=== PATIENT | male | born 1995 | race Caucasian/White ===

== ENCOUNTER → 2017-05-10 | Outpatient (CLI) | payer BC, OTHER ==
[2017-05-10 16:59] LABS: INR 1.04
[2017-05-10 18:53] LABS: ALBUMIN 4.4 GM/DL (3.2-5.2); ALBUMIN/GLOBULIN RATIO 1.33 (1.00-1.93); ALKALINE PHOSPHATASE 108 U/L (45-117); ALT/SGPT 29 U/L (12-78); ANION GAP 7 MEQ/L (8-16); AST/SGOT 25 U/L (15-37); BILIRUBIN,TOTAL 0.6 MG/DL (0.2-1.0); BLOOD UREA NITROGEN 16 MG/DL (7-18); CALCIUM LEVEL 9.2 MG/DL (8.5-10.1); CARBON DIOXIDE LEVEL 31 MEQ/L (21-32); CHLORIDE LEVEL 103 MEQ/L (98-107); CREATININE FOR GFR 1.23 MG/DL (0.70-1.30); GLUCOSE, FASTING 63 MG/DL (70-105); POTASSIUM SERUM 4.2 MEQ/L (3.5-5.1); SODIUM LEVEL 141 MEQ/L (136-145); TOTAL PROTEIN 7.7 GM/DL (6.4-8.2)
[2017-05-10 19:03] LABS: MEAN CORPUSCULAR HEMOGLOBIN 31.6 pg (27.0-33.0); MEAN CORPUSCULAR HGB CONC 35.6 g/dl (32.0-36.5); WHITE BLOOD COUNT 5.1 K/mm3 (4.0-10.0)
[2017-05-10 21:02] LABS: EOSINOPHILS 1 % (0-5)
[2017-05-11 08:29] LABS: CONTROL LINE MONO INT CTR LINE PRESENT
[2017-05-14 08:12] LABS: Lyme Disease IgG Ab 18 kDa Ban Absent (.); Lyme Disease IgG Ab 23 kDa Ban Absent (.); Lyme Disease IgG Ab 28 kDa Ban Absent (.); Lyme Disease IgG Ab 30 kDa Ban Absent (.); Lyme Disease IgG Ab 39 kDa Ban Absent (.); Lyme Disease IgG Ab 41 kDa Ban Present (.); Lyme Disease IgG Ab 45 kDa Ban Absent (.); Lyme Disease IgG Ab 58 kDa Ban Absent (.); Lyme Disease IgG Ab 66 kDa Ban Absent (.); Lyme Disease IgG Ab 93 kDa Ban Absent (.); Lyme Disease IgG West Blot Int Negative (.); Lyme Disease IgG/IgM Antibodie <0.91 ISR (0.00-0.90); Lyme Disease IgM Ab 23 kDa Ban Absent (.); Lyme Disease IgM Ab 39 kDa Ban Absent (.); Lyme Disease IgM Ab 41 kDa Ban Present (.); Lyme Disease IgM Ab Quantitati 0.92 index (0.00-0.79); Lyme Disease IgM West Blot Int Negative (.)
== END ==
LOC: M LAB 15:55
PROVIDERS: ATTEND Pediatrics
DX: R21 Rash and other nonspecific skin eruption (principal)

== ENCOUNTER → 2018-09-15 | Outpatient (CLI) | payer BC, OTHER ==
[2018-09-15 18:07] LABS: ALBUMIN/GLOBULIN RATIO 1.18 (1.00-1.93); ALKALINE PHOSPHATASE 82 U/L (45-117); ALT/SGPT 33 U/L (12-78); ANION GAP 5 MEQ/L (8-16); AST/SGOT 25 U/L (7-37); BLOOD UREA NITROGEN 11 MG/DL (7-18); CALCIUM LEVEL 8.9 MG/DL (8.5-10.1); CARBON DIOXIDE LEVEL 32 MEQ/L (21-32); CHLORIDE LEVEL 102 MEQ/L (98-107); CREATININE FOR GFR 1.18 MG/DL (0.70-1.30); GLUCOSE, FASTING 88 MG/DL (70-100); POTASSIUM SERUM 4.1 MEQ/L (3.5-5.1); SODIUM LEVEL 139 MEQ/L (136-145); TOTAL PROTEIN 7.4 GM/DL (6.4-8.2)
[2018-09-15 18:11] LABS: EOS % 0.5 % (0.0-3.0); HEMATOCRIT 39.4 % (42.0-52.0); HEMOGLOBIN 13.3 g/dl (13.5-17.5); LYMPH # 0.7 10^3/uL (1.5-6.5); MEAN CORPUSCULAR HEMOGLOBIN 30.2 pg (27.0-33.0); MEAN CORPUSCULAR HGB CONC 33.8 g/dl (32.0-36.5); MEAN CORPUSCULAR VOLUME 89.3 fl (80.0-96.0); MONO # 0.6 10^3/uL (0.0-0.8); MONO % 14.6 % (0.0-5.0); NEUTROPHILS # 2.6 10^3/uL (1.8-7.7); NEUTROPHILS % 65.9 % (36.0-66.0); PLATELET COUNT, AUTOMATED 116 10^3/uL (150-450); RED BLOOD COUNT 4.41 10^6/uL (4.30-6.10); RED CELL DISTRIBUTION WIDTH 13.2 % (11.5-14.5); WHITE BLOOD COUNT 3.9 10^3/uL (4.0-10.0)
[2018-09-19 00:50] LABS: EBV VIRAL CAPSID AG IgM <36.0 U/mL (0.0-35.9)
== END ==
LOC: M WUC 16:45
DX: J03.90 Acute tonsillitis, unspecified (principal); R50.9 Fever, unspecified
CPT/HCPCS: 80053

== ENCOUNTER → 2019-01-14 | Outpatient (CLI) | payer BC, OTHER ==
[2019-01-14 14:38] LABS: BASO % 0.3 % (0.0-1.0); EOS # 0.1 10^3/uL (0.0-0.50); EOS % 1.6 % (0.0-3.0); HEMOGLOBIN 14.1 g/dl (13.5-17.5); LYMPH # 0.6 10^3/uL (1.5-6.5); LYMPH % 17.8 % (24.0-44.0); MEAN CORPUSCULAR HEMOGLOBIN 30.5 pg (27.0-33.0); MEAN CORPUSCULAR HGB CONC 34.4 g/dl (32.0-36.5); MEAN CORPUSCULAR VOLUME 88.7 fl (80.0-96.0); MONO # 0.6 10^3/uL (0.0-0.8); MONO % 18.8 % (0.0-5.0); NEUTROPHILS # 1.9 10^3/uL (1.8-7.7); NEUTROPHILS % 61.5 % (36.0-66.0); PLATELET COUNT, AUTOMATED 137 10^3/uL (150-450); RED BLOOD COUNT 4.62 10^6/uL (4.30-6.10); WHITE BLOOD COUNT 3.1 10^3/uL (4.0-10.0)
== END ==
LOC: M WUC 11:26
PROVIDERS: ATTEND Physician Assistant
DX: K11.20 Sialoadenitis, unspecified (principal)

== ENCOUNTER → 2019-03-12 | Outpatient (CLI) | payer BC, OTHER ==
--- NOTE | 2019-03-12 15:07 | REP ---
LEFT FOOT, FOUR VIEWS: HISTORY: Sprain. There is no acute fracture or dislocation. The joint spaces are normal in appearance. IMPRESSION: There is no acute fracture or dislocation. Electronically Signed by Dion Nelson MD 03/12/2019 03:13 P
--- NOTE | 2019-03-12 15:09 | REP ---
LEFT ANKLE, FOUR VIEWS: HISTORY: Sprain. There is no acute fracture or dislocation. The joint space is normal in appearance. Soft tissue swelling is present. IMPRESSION: There is no acute fracture or dislocation. Electronically Signed by Dion Nelson MD 03/12/2019 03:13 P
== END ==
LOC: M WUC 12:03
PROVIDERS: ATTEND Physician Assistant
DX: S93.402A Sprain of unspecified ligament of left ankle, initial encounter (principal); S93.602A Unspecified sprain of left foot, initial encounter; Y93.9 Activity, unspecified

== ENCOUNTER → 2019-07-08 | Outpatient (REF) | payer OTHER ==
[2019-07-09 10:07] LABS: HIV 1&2 SCREEN CENTAUR NEGATIVE (NEGATIVE)
[2019-07-10 10:14] LABS: HEPATITIS B SURFACE ANTIBODY NEGATIVE (POSITIVE); HEPATITIS B SURFACE ANTIGEN NEGATIVE (NEGATIVE); HEPATITIS C VIRUS ABY INDEX 0.1 INDEX (<0.8)
[2019-07-11 08:06] LABS: HEPATITIS B CORE ANTIBODY IGG Negative (Negative)
== END ==
LOC: M SFHCPLAZ 15:51
PROVIDERS: ATTEND Dermatology
DX: Z79.899 Other long term (current) drug therapy (principal)

== ENCOUNTER → 2020-04-14 | Outpatient (CLI) | payer OTHER ==
[2020-04-14 14:37] LABS: CREATININE FOR GFR 1.09 MG/DL (0.70-1.30); GLOMERULAR FILTRATION RATE > 60.0 (>60)
== END ==
LOC: M WUC 11:49
PROVIDERS: ATTEND Physician Assistant Medical
DX: Z51.81 Encounter for therapeutic drug level monitoring (principal); Z79.899 Other long term (current) drug therapy; L40.59 Other psoriatic arthropathy

== ENCOUNTER → 2021-01-25 | Outpatient (CLI) | payer OTHER ==
[2021-01-25 16:47] LABS: BASO % 0.4 % (0.0-1.0); EOS # 0.1 10^3/uL (0.0-0.5); EOS % 1.7 % (0.0-3.0); HEMATOCRIT 44.8 % (42.0-52.0); HEMOGLOBIN 15.4 g/dl (13.5-17.5); LYMPH # 1.5 10^3/uL (1.5-5.0); LYMPH % 28.1 % (24.0-44.0); MEAN CORPUSCULAR HEMOGLOBIN 30.8 pg (27.0-33.0); MEAN CORPUSCULAR HGB CONC 34.4 g/dl (32.0-36.5); MEAN CORPUSCULAR VOLUME 89.6 fl (80.0-96.0); MONO # 0.6 10^3/uL (0.0-0.8); MONO % 10.6 % (2.0-8.0); NEUTROPHILS # 3.1 10^3/uL (1.5-8.5); PLATELET COUNT, AUTOMATED 168 10^3/uL (150-450); WHITE BLOOD COUNT 5.3 10^3/uL (4.0-10.0)
[2021-01-25 16:53] LABS: APPEARANCE, URINE CLEAR (CLEAR); BACTERIA, URINE AUTO NEGATIVE (NEGATIVE); BILIRUBIN, URINE AUTO NEGATIVE (NEGATIVE); BLOOD, URINE BLOOD NEGATIVE (NEGATIVE); COLOR, URINE STRAW (YELLOW); GLUCOSE, URINE (UA) AUTO NEGATIVE (NEGATIVE); KETONE, URINE AUTO NEGATIVE (NEGATIVE); LEUKOCYTE ESTERASE, URINE AUTO NEGATIVE (NEGATIVE); NITRITE, URINE AUTO NEGATIVE (NEGATIVE); PROTEIN, URINE AUTO NEGATIVE (NEGATIVE); RBC, URINE AUTO 0 /HPF (0-3); SPECIFIC GRAVITY URINE AUTO 1.004 (1.002-1.035); SQUAMOUS EPITHELIAL CELL UR AU 0 /HPF (0-6); UROBILINOGEN, URINE AUTO 0.2 mg/dL (0.0-2.0); WBC, URINE AUTO 0 /HPF (0-3)
[2021-01-25 17:15] LABS: BLOOD UREA NITROGEN 19 MG/DL (7-18); CALCIUM LEVEL 9.4 MG/DL (8.5-10.1); CARBON DIOXIDE LEVEL 31 MEQ/L (21-32); CHLORIDE LEVEL 99 MEQ/L (98-107); GLOMERULAR FILTRATION RATE > 60.0 (>60); GLUCOSE, FASTING 89 MG/DL (70-100); SODIUM LEVEL 134 MEQ/L (136-145)
[2021-01-25 17:25] LABS: CREATININE, URINE 39.3 MG/DL; MALB URINE SIEMENS 5.7 MG/L; MAU/CREAT RATIO 14.5 MCG/MG (0.0-30.0); TOTAL PROTEIN,RANDOM URINE 8.5 MG/DL (0.0-12.0)
[2021-01-25 18:12] LABS: HEMOGLOBIN A1c 4.6 %
== END ==
LOC: M WUC 13:42
DX: Z00.5 Encounter for examination of potential donor of organ and tissue (principal)

== ENCOUNTER → 2021-06-03 | Outpatient (REF) | payer OTHER ==
[2021-06-03 13:38] LABS: APPEARANCE, URINE CLEAR (CLEAR); BACTERIA, URINE AUTO NEGATIVE (NEGATIVE); BILIRUBIN, URINE AUTO NEGATIVE (NEGATIVE); BLOOD, URINE BLOOD NEGATIVE (NEGATIVE); COLOR, URINE YELLOW (YELLOW); GLUCOSE, URINE (UA) AUTO NEGATIVE (NEGATIVE); KETONE, URINE AUTO NEGATIVE (NEGATIVE); LEUKOCYTE ESTERASE, URINE AUTO NEGATIVE (NEGATIVE); MUCUS, URINE SMALL (NEGATIVE); NITRITE, URINE AUTO NEGATIVE (NEGATIVE); PROTEIN, URINE AUTO NEGATIVE (NEGATIVE); RBC, URINE AUTO 0 /HPF (0-3); SPECIFIC GRAVITY URINE AUTO 1.014 (1.002-1.035); SQUAMOUS EPITHELIAL CELL UR AU 0 /HPF (0-6); UROBILINOGEN, URINE AUTO 0.2 mg/dL (0.0-2.0); WBC, URINE AUTO 0 /HPF (0-3)
[2021-06-03 15:32] LABS: GC DNA AMPLIFICATION NEGATIVE (NEGATIVE)
== END ==
LOC: M SMT 13:03
PROVIDERS: ATTEND Nurse Practitioner Family
DX: N48.89 Other specified disorders of penis (principal)

== ENCOUNTER → 2021-08-14 | Outpatient (CLI) | payer BC, OTHER ==
[~2021-08-14] MED LIST: BACTDSTA PO; FAMO40TA3 PO; FLUO20CA22 PO; PANT40TA29 PO
== END ==
LOC: M LABSMTC 09:27
PROVIDERS: ATTEND Anesthesiology
DX: Z01.812 Encounter for preprocedural laboratory examination (principal); Z20.822 Contact with and (suspected) exposure to COVID-19

== ENCOUNTER 2021-08-19 12:20 | Day surgery (SDC) | payer BC, OTHER ==
[~2021-08-19] VITALS: Ht 182.9 cm; Wt 81.6 kg
[~2021-08-19 12:20] MED LIST changes: +LIDOCAINE 2% 100MG/5ML SDV (FOR ANES.) As Ordered ONE; +NS 1,000 ML IV ONE; +fentaNYL 100 MCG/2 ML INJECTION (J3010) As Ordered ONE; +propofoL 200 MG/20 ML VIAL As Ordered ONE
--- OUTSIDE RECORDS SUMMARY | 2021-08-19 12:25 | CCD ---
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 Active confirme d 72605502 Problem Common wart B07.8 Active confirmed 93805250 Problem Arthritis M19.90 Active confirmed 2075755 ALLERGIES No Known Allergies ENCOUNTERS from 1997 to 2021-07-22 Encounter Location Date Provider Diagnosis [facility] Urology [address] [phone] [place] [address] Jun, Reese Alcocer Penile pain N48.89 ; Suprapubic pain R10 .2 ; Chronic prostatitis N41.1 and Perineal pain R10.2 IMMUNIZATIONS No Information SOCIAL HISTORY Tobacco Use: Social History Observation Description Date Details (start date - stop date) Never Smoker Sex Assigned At : Social History Observation Description Sex Assigned At Unknown Tobacco Use: Question Answer Notes Are you a: never smoker REASON FOR REFERRAL No Information VITAL SIGNS Weight 180 lbs Jun, Height 70 in Jun, BMI 25.82 kg/m2 Jun, Heart Rate 98 /min Jun, Respiratory Rate 18 /min Jun, Temperature 97.0 degrees Fahrenheit Jun, Oximetry 99 Jun, Blood pressure systolic 136 mm Hg Jun, Blood pressure diastolic 86 mm Hg Jun, MEDICATIONS Medication SIG (Take, Route, Frequency, Duration) Notes Start Da te End Date Status Valtrex Not-Taking Sulfamethoxazole-Trimethoprim 800-160 MG 1 tablet Oral ly Twice a day for 21 days May, Not-Taking Humira Pen 40 MG/0.4ML as directed Subcutaneous 1 pen every 2 weeks Not-Taking Imiquimod 5 % 1 application at bedtime, le ave on for 8 hours then wash off Externally nightly for 30 days February, A ctive Otezla 30 1 TABLET TWICE A DAY AFTER T HE START PACK IS COMPLETED ORALLY 30 DAY(S) for 30 Not-Taking Otezla 10 & 20 & 30 MG as directed Orally as directed for 28 day (s) Apr, Not-Taking Cosentyx 150 MG/ML 1 ml Subcutaneous for 30 day(s) Active Triamcinolone Acetonide 0.1 % 1 application Externally Twice a day to affected areas of trunk and extremities for 14 days February, Active Pantoprazole Sodium 40 MG TK 1 T PO QD Oral Active Bactrim DS 800-160 MG 1 tablet Orally Twice a day Jun, Active Otezla 30 MG 1 tablet Orally Twice a day after the start pack is completed for 30 Not-Taking PROCEDURES No Information RESULTS No Results REASON FOR VISIT penile pain MEDICAL (GENERAL) HISTORY Type Description Date Medical History Chronic prostatitis Surgical History knee surgery 2015 Surgical History [place] tooth extraction 10/2019 Goals Section No Information Health Concerns No Information MEDICAL EQUIPMENT No Information MENTAL STATUS No Information FUNCTIONAL STATUS No Information ASSESSMENTS Encounter Date Diagnosis Assessment Notes Treatment Notes Treatm ent Clinical Notes Jun, Penile pain (ICD-10 - N48.89) Jun, Suprapubic pain (ICD-10 - R10.2) Jun, Chronic prostatitis (ICD-10 - N41.1) Jun, Perineal pain (ICD-10 - R10.2) PLAN OF TREATMENT Medication Medication Name Sig Start Date Stop Date Bactrim DS 800-160 MG 1 tablet Orally Twice a day Jun, Next Appt Details As needed, depends upon results of antib iotic Reason:Chronic prostatitis Provider Name:Sasha Richardson, 2021-07-27 02:30:00 PM, [address] [place] [address], , [place], [place], [facility], Provider Name:Sasha Richardson, 2022-02-28 07:30:00 AM, [address] [place] [address], , [place], [place], [facility], Follow Up:As needed, depends upon results of antibioticChronic prostatitis Insurance Providers Payer Name Payer Address Payer Phone Insured Name Patient Relati onship to Insured Coverage Start Date Coverage End Date [facility] [address] [facility] [id number] MICHOACANO PATINO [id number]
--- OUTSIDE RECORDS SUMMARY | 2021-08-19 12:25 | CCD ---
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 confirme d 52944350 Problem High risk medication use Z79.899 Active confirmed 130309164251304 Problem Common wart B07.8 Active confirmed 96575226 ALLERGIES No Known Allergies ENCOUNTERS from 1997 to 2021-06-21 Encounter Location Date Provider Diagnosis [facility] Dermatology [address] [place] [address] [place] [address] May, Sasha Richardson Verruca B07.9 and Skin irrit ation R23.8 IMMUNIZATIONS No Information SOCIAL HISTORY Tobacco Use: Social History Observation Description Date Details (start date - stop date) Never Smoker Sex Assigned At : Social History Observation Description Sex Assigned At Unknown Tobacco Use: Question Answer Notes Are you a: never smoker REASON FOR REFERRAL No Information VITAL SIGNS Weight 179.4 lbs May, Weight-kg 81.38 kg May, Height 70 in May, BMI 25.74 kg/m2 May, Blood pressure systolic 124 mm Hg May, Blood pressure diastolic 72 mm Hg May, MEDICATIONS Medication SIG (Take, Route, Frequency, Duration) Notes Start Da te End Date Status Valtrex Active Sulfamethoxazole-Trimethoprim 800-160 MG 1 tablet Oral ly Twice a day for 21 days May, Active Cosentyx 150 MG/ML 1 ml Subcutaneous for 30 day(s) Active Otezla 30 1 TABLET TWICE A DAY AFTER T HE START PACK IS COMPLETED ORALLY 30 DAY(S) for 30 Not-Taking Imiquimod 5 % 1 application at bedtime, le ave on for 8 hours then wash off Externally nightly for 30 days February, A ctive Humira Pen 40 MG/0.4ML as directed Subcutaneous 1 pen every 2 weeks Not-Taking Pantoprazole Sodium 40 MG TK 1 T PO QD Oral Active Triamcinolone Acetonide 0.1 % 1 application Externally Twice a day to affected areas of trunk and extremities for 14 days February, Active Otezla 30 MG 1 tablet Orally Twice a day after the start pack is completed for 30 Not-Taking Otezla 10 & 20 & 30 MG as directed Orally as directed for 28 day (s) Apr, Not-Taking PROCEDURES No Information RESULTS No Results REASON FOR VISIT wart f/u MEDICAL (GENERAL) HISTORY Type Description Date Surgical History knee surgery 2015 Surgical History [place] tooth extraction 10/2019 Goals Section No Information Health Concerns No Information MEDICAL EQUIPMENT No Information MENTAL STATUS No Information FUNCTIONAL STATUS No Information ASSESSMENTS Encounter Date Diagnosis Assessment Notes Treatment Notes Treatm ent Clinical Notes May, Nikole (ICD-10 - B07.9) 2nd cryotherapy treatment to groin Cryotherapy x [15] number of sites. [place] protocol was followed in compliance with [facility] standards. Patient was counseled regarding the indication for treatment (precancerous state for actinic keratosis or cosmetic reasons if done for seborrheic keratoses, acrochordons or warts) as well as, the method and expected results to include compromise of the skin barrier, bleeding, scarring/white area, redness at site, lesion recurrence, and pain. Patient was consented to the risks and benefits of the procedure and gave informed consent. Lesion(s) with locations as indicated in the physical examination were treated. Lesion(s) were treated with 2 cycles of liquid nitrogen with a thaw time of at least ten seconds. Therapy was applied in a pulsed fashion to minimize collateral tissue injury. Patient was instructed to use Vaseline ointment to the area(s) until healed. Patient tolerated the procedure well and left in stable condition. Pain before and after the procedure were assessed to not be significantly different than baseline. May, Skin irritation (ICD-10 - R23.8) PLAN OF TREATMENT Medication Medication Name Sig Start Date Stop Date Imiquimod 5 % 1 application at bedtime, le ave on for 8 hours then wash off Externally nightly for 30 days February, Treatment Notes Assessment Notes Clinical Notes Verruca 2nd cryotherapy treatment to groin Cryot herapy x [15] number of sites. [place] protocol was followed in compliance with [facility] standards. Patient was counseled regarding the indication for treatment (precancerous state for actinic keratosis or cosmetic reasons if done for seborrheic keratoses, acrochordons or warts) as well as, the method and expected results to include compromise of the skin barrier, bleeding, scarring/white area, redness at site, lesion recurrence, and pain. Patient was consented to the risks and benefits of the procedure and gave informed consent. Lesion(s) with locations as indicated in the physical examination were treated. Lesion(s) were treated with 2 cycles of liquid nitrogen with a thaw time of at least ten seconds. Therapy was applied in a pulsed fashion to minimize collateral tissue i njury. Patient was instructed to use Vaseline ointment to the area(s) until healed. Patient tolerated the procedure well and left in stable condition. Pain before and after the procedure were assessed to not be significantly different than baseline. Next Appt Details 6 Weeks Reason:wart f/u Provider Name:Reese Alcocer, 2021-06-0 9 09:30:00 AM, [address], , [place], [address], Provider Name:Sasha Richardson, 2021-07-27 02:30:00 PM, [address] [place] [address], , [place], [address], Provider Name:Sasha Richardson, 2022-02-28 07:30:00 AM, [address] [place] [address], , [place], [address], Follow Up:6 Weekswart f/u Insurance Providers Payer Name Payer Address Payer Phone Insured Name Patient Relati onship to Insured Coverage Start Date Coverage End Date [facility] [address] [facility] [id number] MICHOACANO PATINO [id number]
--- OUTSIDE RECORDS SUMMARY | 2021-08-19 12:25 | CCD ---
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 confirme d 85043158 Problem Common wart B07.8 Active confirmed 14400843 Problem Arthritis M19.90 Active confirmed 5189558 ALLERGIES No Known Allergies ENCOUNTERS from 1997 to 2021-07-28 Encounter Location Date Provider Diagnosis [facility] Dermatology [address] [place] [address] [place] [address] Jul, Sasha Richardson Verruca B07.9 and Skin irrit ation R23.8 IMMUNIZATIONS No Information SOCIAL HISTORY Tobacco Use: Social History Observation Description Date Details (start date - stop date) Never Smoker Sex Assigned At : Social History Observation Description Sex Assigned At Unknown Tobacco Use: Question Answer Notes Are you a: never smoker REASON FOR REFERRAL No Information VITAL SIGNS Weight 183.4 lbs Jul, Weight-kg 83.19 kg Jul, Height 72 in Jul, BMI 24.87 kg/m2 Jul, Blood pressure systolic 128 mm Hg Jul, Blood pressure diastolic 76 mm Hg 05 Oct, 2021 MEDICATIONS Medication SIG (Take, Route, Frequency, Duration) Notes Start Da te End Date Status Pantoprazole Sodium 40 MG TK 1 T PO QD Oral Active Cosentyx 150 MG/ML 1 ml Subcutaneous for 30 day(s) Active Triamcinolone Acetonide 0.1 % 1 application Externally Twice a day to affected areas of trunk and extremities for 14 days February, Active Imiquimod 5 % 1 application at bedtime, le ave on for 8 hours then wash off Externally nightly for 30 days February, A ctive Humira Pen 40 MG/0.4ML as directed Subcutaneous 1 pen every 2 weeks Not-Taking Sulfamethoxazole-Trimethoprim 800-160 MG 1 tablet Oral ly Twice a day for 21 days May, Not-Taking Valtrex Not-Taking Otezla 10 & 20 & 30 MG as directed Orally as directed for 28 day (s) Apr, Not-Taking Otezla 30 MG 1 tablet Orally Twice a day after the start pack is completed for 30 Not-Taking Otezla 30 1 TABLET TWICE A DAY AFTER T HE START PACK IS COMPLETED ORALLY 30 DAY(S) for 30 Not-Taking Bactrim DS 800-160 MG 1 tablet Orally Twice a day Jun, Active PROCEDURES No Information RESULTS No Results REASON FOR VISIT WART F/U MEDICAL (GENERAL) HISTORY Type Description Date Medical History Chronic prostatitis Surgical History knee surgery 2015 Surgical History [place] tooth extraction 10/2019 Goals Section No Information Health Concerns No Information MEDICAL EQUIPMENT No Information MENTAL STATUS No Information FUNCTIONAL STATUS No Information ASSESSMENTS Encounter Date Diagnosis Assessment Notes Treatment Notes Treatm ent Clinical Notes Jul, Verruca (ICD-10 - B07.9) Cryotherapy x [ 9] number of sites. [place] protocol was followed in compliance with [facility] standards. Patient was counseled regarding the [...] to not be significantly different than baseline. Jul, Skin irritation (ICD-10 - R23.8) PLAN OF TREATMENT Treatment Notes Assessment Notes Clinical Notes Verruca Cryotherapy x [ 9] number of sites. [place] protocol was followed in compliance with [facility] standards. Patient was counseled regarding the [...] than baseline. Next Appt Details 6 Weeks Reason:verrucae Provider Name:Sasha Richardson, 2021-09-09 07:15:00 AM, [address] [place] [address], [place], [place], [address] [place], [place] [address] Provider Name:Sasha Richardson, 2022-02-28 07:30:00 AM, [address] [place] [address], [address] [place], [place] [phone] Follow Up:6 Weeksverrucae Insurance Providers Payer Name Payer Address Payer Phone Insured Name Patient Relati onship to Insured Coverage Start Date Coverage End Date [facility] [address] [facility] [id number] MICHOACANO PATINO [id number]
--- OUTSIDE RECORDS SUMMARY | 2021-08-19 12:25 | CCD | Continuity of Care Document ---
Author Author John Carbone MD Organization Unknown Address [address] [address] Phone [phone] Care Team Providers Care Landcare Officer Name Role Phone Humberto Sheriff AUTM [phone] [facility] AUTM Problems Description No Information Available Social History Type Date Description Comments Sex Unknown ETOH Use Occasionally consumes alcohol so cially Tobacco Use Start: Unknown Patient has never smoked Allergies, Adverse Reactions, Alerts Description No Known Drug Allergies Medications Active Medications SIG Qnty Indications Ordering Provide r Date Cosentyx 150mg/ml Soln Prefill Syringe Dante Carbone MD 05/18/2021 Ondansetron 4mg Tablets Dispers one odt every 6 hours as needed for nausea 60tabs PÉREZ Barkley JR 02/22/2021 Valacyclovir HCL 500mg Tablets take one tablet by mouth daily 90tabs PÉREZ Frausto JR 0 01/26/2021 Ibuprofen 800mg Tablets 1 three times a day with food as needed pain 180tabs PÉREZ Kurtz 12/03/2020 Fluoxetine HCL 20mg Capsules 1 by mouth every morning with food 90caps PÉREZ Frausto JR 11/11/2020 Pantoprazole Sodium 40mg Tablets D R take 1 tablet by mouth every day 90tabs K21.9 Dante Carbone MD 04/19/2018 History Medications Valacyclovir HCL 1gm Tablets take one tablet two times a day x 10 days 20tabs PÉREZ Reyes JR 01/15/2021 - 01/26/2021 Immunizations Description No Information Available Vital Signs Date Vital Result Comment 05/18/2021 9:11am BP Systolic 110 mmHg BP Diastolic 68 mmHg Heart Rate 64 /min Height 72 inches 6'0" Weight 174.00 lb BMI (Body Mass Index) 23.6 kg/m2 12/03/2020 1:05pm BP Systolic 128 mmHg BP Diastolic 80 mmHg Heart Rate 78 /min Height 72 inches 6'0" Weight 183.00 lb BMI (Body Mass Index) 24.8 kg/m2 Results Test Acquired Date Facility Test Result H/L Range Note Complete Blood Count 05/18/2021 [facility] [employer] [employer] [facility] Operator: Dr Dante Carbone [place], [place] [id number] [phone] WBC 4.9 x10*3/UL 4.1 - 10.9 RBC 4.95 x10*6/UL 4.20 - 6.30 Hemoglobin 15.3 g/dL 12.0 - 18.0 Hematocrit 44.0 % 37.0 - 51.0 MCV 88.7 fL 80.0 - 97.0 MCH 31.0 pg 26.0 - 32.0 MCHC 34.9 g/dL 31.0 - 38.0 RDW 12.5 % 11.6 - 13.7 PLT 146 x10*3/UL 140 - 440 MPV 8.9 FL 7.8 - 11.0 Lymph % 26.4 % 10.0 - 58.5 Mid % 6.7 % 1.7 - 9.3 Neut % 66.9 % 37.0 - 92.0 Lymph # 1.2 x10*3/UL 0.6 - 4.1 Mid # 0.5 x10*3/UL 0.1 - 0.6 Neut # 3.2 x10*3/UL 2.0 - 7.8 Comprehensive Chem Profile 05/18/2021 [facility] [employer] [facility] Operator: [place] [address] [phone] Glucose 98 mg/dL 74 - 99 1 BUN 19 mg/dL High 7 - 18 Creatinine 1.0 mg/dL 0.6 - 1.3 Sodium 140 mEq/L 136 - 145 Potassium 4.3 mEq/L 3.5 - 5.1 Chloride 103 mEq/L 98 - 107 Carbon Dioxide 33 mEq/L High 21 - 32 Calcium 9.9 mg/dL 8.5 - 10.1 Alk. Phosphatase 87 mg/dL 46 - 116 Total Bilirubin 0.5 mg/dL 0.2 - 1.0 Ast (Sgot) 29 U/L 15 - 37 Alt (SGPT) 29 U/L 12 - 78 Albumin 4.5 g/dL 3.4 - 5.0 Total Protein 7.6 g/dL 6.4 - 8.2 A/G Ratio 1.45 CALC 1.00 - 1.90 GFR >= 60 mL/min >60 GFR >= 60 mL/min >60 2 Lipid Profile 05/18/2021 [facility] [employer] Operator: Dr Dante Carbone [place], [place] [id number] [phone] Cholesterol 171 mg/dL 131 - 200 Triglycerides 139 mg/dL 30 - 150 HDL Cholesterol 37 mg/dL 35 - 60 LDL (Calculated) 106 CALC 50 - 159 1 100-125 mg/dL PRE-DIABET ES/FASTING >126 mg/dL DIABETES/FASTING 2 CHRONIC KIDNEY DISEASE STAGI NG PER NKF STAGE I & II GFR >= 60 NORMAL TO MILDLY DECREASED STAGE III GFR 30-59 MODERATELY DECREASED STAGE IV GFR 15-29 SEVERELY DECREASED STAGE V GFR <15 VERY LITTLE GFR LEFT ESRD GFR <15 ON DIAGNOSTIC CARDIAC SONOGRAPHER Procedures Date Code Description Status 05/18/2021 54603 Est Prevent Med (18-39Yrs) Compl eted 12/03/2020 72649 Office/Outpatient Established Lo w MDM 20-29 Min Completed Medical Devices Description No Information Available Encounters Type Date Location Provider Dx Diagnosis Office Visit 05/18/2021 9:00a [facility] P.Jennifer Carbone MD Z00.00 Encntr for general adult medical exam w/ o abnormal findings Z00.01 Encounter for general adult medical exam w abnormal findings L40.9 Psoriasis, unspecified 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 K21.9 Gastro-esophageal reflux dis ease without esophagitis N48.9 Disorder of penis, unspecifi ed Z13.89 Encounter for screening for other disorder Office Visit 12/03/2020 1:00p [facility]CValdo Sheriff JR, [place] F41.9 Anxiety disorder, unspecifie d Assessments Date Code Description Provider 05/18/2021 Z00.00 Encounter for genera l adult medical examination without abnormal findings Dante Carbone MD 05/18/2021 Z00.01 Encounter for genera l adult medical examination with abnormal findings Dante Carbone MD 05/18/2021 L40.9 Psoriasis, unspecified Dante Carbone MD 05/18/2021 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 * K21.9 Gastro-esophageal reflux disease without esophagitis * N48.9 Disorder of penis, unspecified * Z13.89 Encounter for screening for other disorder * All * New Medication:* Cosentyx 150 mg/ml - Functional Status Description No Information Available Mental Status Description No Information Available Referrals Refer to Reason for Referral Status Appt Date Richard Lubin MD CONSULT FOR SCREENING EGD DX: GERD Cr eated [address] [facility] [address] [place] [address] [phone] [facility] [place] CONSULT FOR PENILE PAIN Created [address] [place] [address] [phone]
--- OUTSIDE RECORDS SUMMARY | 2021-08-19 12:25 | CCD ---
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 confirme d 35620008 Problem High risk medication use Z79.899 Active confirmed [id number] Problem Common wart B07.8 Active confirmed 05316672 ALLERGIES No Known Allergies ENCOUNTERS from 1997 to 2021-06-04 Encounter Location Date Provider Diagnosis [facility] [address] [phone] [place] [address] May, Sunday Veras Penile pain N48.89 IMMUNIZATIONS No Information SOCIAL HISTORY Tobacco Use: Social History Observation Description Date Details (start date - stop date) Never Smoker Sex Assigned At : Social History Observation Description Sex Assigned At Unknown Tobacco Use: Question Answer Notes Are you a: never smoker REASON FOR REFERRAL No Information VITAL SIGNS Weight 170 lbs May, Weight-kg 77.11 kg May, Height 6' in May, BMI 23.05 kg/m2 May, Heart Rate 83 /min May, Respiratory Rate 18 /min May, Temperature 96.7 degrees Fahrenheit May, Oximetry 99 May, Blood pressure systolic 124 mm Hg May, Blood pressure diastolic 74 mm Hg May, MEDICATIONS Medication SIG (Take, Route, Frequency, Duration) Notes Start Da te End Date Status Otezla 10 & 20 & 30 MG as directed Orally as directed for 28 day (s) Apr, Not-Taking Valtrex Active Cosentyx 150 MG/ML 1 ml Subcutaneous for 30 day(s) Active Triamcinolone Acetonide 0.1 % 1 application Externally Twice a day to affected areas of trunk and extremities for 14 days February, Active Otezla 30 MG 1 tablet Orally Twice a day after the start pack is completed for 30 Not-Taking Pantoprazole Sodium 40 MG TK 1 T PO QD Oral for 60 Active Sulfamethoxazole-Trimethoprim 800-160 MG 1 tablet Oral ly Twice a day for 21 days May, Active Humira Pen 40 MG/0.4ML as directed Subcutaneous 1 pen every 2 weeks Not-Taking Otezla 30 1 TABLET TWICE A DAY AFTER T HE START PACK IS COMPLETED ORALLY 30 DAY(S) for 30 Not-Taking Imiquimod 5 % 1 application at bedtime, le ave on for 8 hours then wash off Externally nightly for 30 days February, A ctive PROCEDURES No Information RESULTS Component Value Reference Range CHLAMYDIA & GC DNA AMPLIFICAT Reviewed date:06/03/2021 15:53:29 Interpretation: Performing Lab:[facility] [address] [facility] [address] , ,[place] [address] CHLAMYDIA DNA AMPLIFICATION NEGATIVE NEGATIVE GC DNA AMPLIFICATION NEGATIVE NEGATIVE UA URINALYSIS Reviewed date:06/03/2021 13:57:09 Interpretation: Performing Lab:[facility] [address] [facility] [address] [address] , ,[place] [address] URINE CULTURE Reviewed date:06/04/2021 08:45:20 Interpretation: Performing Lab:[facility] [address] [facility] [address] , ,[place] [address] REASON FOR VISIT penile pain MEDICAL (GENERAL) HISTORY Type Description Date Surgical History knee surgery 2015 Surgical History [place] tooth extraction 10/2019 Goals Section No Information Health Concerns No Information MEDICAL EQUIPMENT No Information MENTAL STATUS No Information FUNCTIONAL STATUS No Information ASSESSMENTS Encounter Date Diagnosis Assessment Notes Treatment Notes Treatm ent Clinical Notes May, Penile pain (ICD-10 - N48.89) Will send UA, urine culture, GC/CT today. Will start him on a 3 week course of abx for presumptive prostate infection/inflammation. Encouraged him to use NSAIDS prn for the pain. F/U in 4 weeks to reevaluate. PLAN OF TREATMENT Medication Medication Name Sig Start Date Stop Date Sulfamethoxazole-Trimethoprim 800-160 MG 1 tablet Oral ly Twice a day for 21 days May, Treatment Notes Assessment Notes Clinical Notes Penile pain Will send UA, urine culture, GC/CT today.Will start him on a 3 week course of abx for presumptive prostate infection/inflammation.Encouraged him to use NSAIDS prn for the pain.F/U in 4 weeks to reevaluate. Future Test Test Name Order Date URINE CULTURE [id number] UA URINALYSIS [id number] CHLAMYDIA & GC DNA AMPLIFICAT [id number] Next Appt Details 4 Weeks Reason:penile pain Provider Name:Sasha Richardson, 2021-06-17 09:30:00 AM, [address] [place] [address], , [place], [address], Provider Name:Reese Alcocer, 9 09:30:00 AM, [address] [facility] [phone], [place], [address], Provider Name:Sasha Richardson, 2022-02-28 07:30:00 AM, [address] [place] [address] , [place], [address], Follow Up:4 Weekspenile pain Insurance Providers Payer Name Payer Address Payer Phone Insured Name Patient Relati onship to Insured Coverage Start Date Coverage End Date [facility] [address] [facility] [id number] MICHOACANO PATINO [id number]
--- OUTSIDE RECORDS SUMMARY | 2021-08-19 12:25 | CCD | Continuity of Care Document ---
Author Author John VAN Organization Unknown Address [address] [place] [address] Phone [phone] Care Team Providers Care Host/Hostess Restaurant Name Role Phone Dante Carbone MD AUTM [phone] Yordy Keys AUTM [phone] Problems Active Problems Provider Date Pick's disease Onset: Note: natan picks Acute upper respiratory infection Mick Olvera Onset: 03/05/2011 Social History Type Date Description Comments Sex Unknown ETOH Use Occasionally consumes alcohol Tobacco Use Start: Unknown Patient has never smoked Smoking Status Reviewed: 05/31/21 Patient has never smoked Allergies, Adverse Reactions, Alerts Description No Known Drug Allergies Medications Active Medications SIG Qnty Indications Ordering Provide r Date Pantoprazole Sodium 20mg Tablets D R 1 by mouth every day Unknown Humira Unknown Ibuprofen Unknown Immunizations Description No Information Available Vital Signs Date Vital Result Comment 05/31/2021 5:03pm BP Systolic 124 mmHg BP Diastolic 84 mmHg Heart Rate 90 /min Respiratory Rate 12 /min O2 % BldC Oximetry 98 % Body Temperature 98.7 F Weight 170.00 lb Height 72 inches 6'0" BMI (Body Mass Index) 23.1 kg/m2 Pain Level 7 12/15/2020 6:42pm BP Systolic 134 mmHg BP Diastolic 92 mmHg Heart Rate 94 /min Respiratory Rate 16 /min O2 % BldC Oximetry 99 % Body Temperature 96.9 F Weight 180.00 lb Height 72 inches 6'0" BMI (Body Mass Index) 24.4 kg/m2 Pain Level 0 Results Description No Information Available Procedures Date Code Description Status 05/31/2021 34049 Office/Outpatient Established Mo d MDM 30-39 Min Completed 12/15/2020 27676 Office/Outpatient Established Lo w MDM 20-29 Min Completed Medical Devices Description No Information Available Encounters Type Date Location Provider Dx Diagnosis Office Visit 05/31/2021 4:05p Main Office Mick Johnson J0 6.9 Acute upper respiratory infection, unspecified Z20.828 Contact w and exposure to ot h viral communicable diseases Office Visit 12/15/2020 4:40p Main Office PÉERZ Rider M79.1 0 Myalgia, unspecified site U07.1 Covid-19 Z20.828 Contact w and exposure to ot h viral communicable diseases Assessments Date Code Description Provider 05/31/2021 J06.9 Acute upper respiratory infectio n, unspecified Ace Van, P.A. 05/31/2021 Z20.828 Contact with and (york spected) exposure to other viral communicable diseases Jose Angel JohnsonAValdo 12/15/2020 M79.10 Myalgia, unspecified site PÉREZ Mendoza 12/15/2020 U07.1 Covid-19 PÉREZ Rider 12/15/2020 Z20.828 Contact with and (york spected) exposure to other viral communicable diseases PÉREZ Rider Plan of Treatment 05/31/2021 - Ace Van, P.A.* J06.9 Acute upper respiratory infection, unspecified* Comments:* Likely viralSupportive care with OTC cough/cold meds as needed per package instructions. Increase fluidsRestFollow with PCP Return as needed for increasing or persisting symptoms. * Z20.828 Contact with and (suspected) exposure to other viral communicable diseases* Comments:* rapid COVID-19 negative via SOFIA2 SARS antigen Functional Status Description No Information Available Mental Status Description No Information Available Referrals Description No Information Available
--- OUTSIDE RECORDS SUMMARY | 2021-08-19 12:25 | CCD | Continuity of Care Document ---
Author Author John BLAND Organization Unknown Address [address] [place] [address], [address] [place] [address] Phone [phone] Care Team Providers Care Battery Parts Assembler Name Role Phone Dante Carbone MD @ [facility] Int AUTM [phone] Problems Description No Active Problems Social History Type Date Description Comments Sex Unknown ETOH Use 15-20 on the weekend Tobacco Use Start: Unknown Non Smoker Allergies, Adverse Reactions, Alerts Description No Known Drug Allergies Medications Active Medications SIG Qnty Indications Ordering Provide r Date Famotidine 40mg Tablets take 1 tablet by mouth every evening. 30tabs K21.9 Vance Allen MD 07/12/2021 [address]op[address]ole [address] 40[address] Table[address] Daily Unknown Fluoxetine HCL 10mg Capsules 1 by mouth every day Unknown Cosentyx 150mg/ml Soln Prefill Syr georgina Take as directed. Unknown Ibuprofen 800mg Tablets Take 1 tablet by mouth as directed prn. Unknown 0 Immunizations Description No Information Available Vital Signs Date Vital Result Comment 07/12/2021 9:53am BP Systolic 124 mmHg BP Diastolic 88 mmHg Height 72 inches 6'0" Weight 182.00 lb BMI (Body Mass Index) 24.7 kg/m2 [place] Body Weight 178 lb Weight 82.555 kg BSA (Body Surface Area) 2.05 m2 Results Description No Information Available Procedures Description No Information Available Medical Devices Description No Information Available Encounters Description No Information Available Assessments Date Code Description Provider 07/12/2021 K21.9 Gastro-esophageal reflux disease without esophagitis NOLVIA Gandhi 07/12/2021 R11.2 Nausea with vomiting, unspecifie d NOLVIA Gandhi 07/12/2021 R10.10 Upper abdominal pain, unspecifie d NOLVIA Gandhi 07/12/2021 R19.8 Other specified symp toms and signs involving the digestive system and abdomen NOLVIA Gandhi Plan of Treatment 07/12/2021 - NOLVIA Gandhi* K21.9 Gastro-esophageal reflux disease without esophagitis * R11.2 Nausea with vomiting, unspecified * R10.10 Upper abdominal pain, unspecified * R19.8 Other specified symptoms and signs involving the digestive system and abdomen * * New Medication:* Famotidine 40 mg * New Orders:* Endoscopy, Ordered: 07/12/21 * Comments:* Will arrange for upper endoscopy. Reviewed risks and benefits of the procedure, as well as other options, with the patient. Prep for this procedure was discussed with patient. Patient verbalized understanding of all of the above and is in agreement to proceed. Patient will seek medical attention for any acute changes. Will monitor. * Follow up:* As scheduled, sooner if needed. Functional Status Description No Information Available Mental Status Description No Information Available Referrals Refer to Reason for Referral Status Appt Date Richard Lubin M.D. GERD Scheduled 07/12 [facility] [address] [facility], [address] [place] [address] [phone]
--- OUTSIDE RECORDS SUMMARY | 2021-08-19 12:25 | CCD | Continuity of Care Document ---
Author Author John SHERIFF Organization Unknown Address [address] [address] Phone [phone] Care Team Providers Care Air Pollution Control Engineer Name Role Phone Humberto Sheriff AUTM [phone] [facility] AUTM Problems Description No Information Available Social History Type Date Description Comments Sex Unknown ETOH Use Occasionally consumes alcohol so cially Tobacco Use Start: Unknown Patient has never smoked Allergies and adverse reactions Description No Known Drug Allergies Medications Active Medications SIG Qnty Indications Ordering Provide r Date Cosentyx 150mg/ml Soln Prefill Syringe Dante Carbone MD 05/18/2021 Ondansetron 4mg Tablets Dispers one odt every 6 hours as needed for nausea 60tabs CHRISTIANO Barkley JR 02/22/2021 Valacyclovir HCL 500mg Tablets take one tablet by mouth daily 90tabs CHRISTIANO Frausto JR 0 01/26/2021 Ibuprofen 800mg Tablets 1 three times a day with food as needed pain 180tabs CHRISTIANO Kurtz 12/03/2020 Fluoxetine HCL 20mg Capsules 1 by mouth every morning with food 90caps CHRISTIANO Frausto JR 11/11/2020 Pantoprazole Sodium 40mg Tablets D R Take 1 Tablet By Mouth Daily 90tabs K21.9 Dante Carbone MD 03/24 Immunizations Description No Information Available Vital Signs [...] Date Facility Test Result H/L Range Note Coronavirus 2019 Nasopharygeal 08/14/2021 [facility] [address] [place] [address] [phone] Coronavirus 2019 Nasopharygeal ASSAY INFORMATIO <SEE N OTE> 1 Complete Blood Count 05/18/2021 [facility] Snow Groomer: [place] [address] [phone] WBC 4.9 x10*3/UL 4.1 - 10.9 RBC [...] 2.0 - 7.8 Comprehensive Chem Profile 05/18/2021 [facility] cher[facility] Petersen Snow Groomer: [place] [address] [phone] Glucose 98 mg/dL 74 - 99 2 BUN 19 mg/dL High 7 - 18 [...] mL/min >60 GFR >= 60 mL/min >60 3 Lipid Profile 05/18/2021 [facility] Snow Groomer: [place] [address] [phone] Cholesterol 171 mg/dL 131 - 200 Triglycerides 139 mg/dL 30 - 150 HDL Cholesterol 37 mg/dL 35 - 60 LDL (Calculated) 106 CALC 50 - 159 1 ASSAY INFORMATION: Real Time RT-PCR NOTE: The COVID-19 assay has been cleared by the U.S. Food and Drug Administration under the Emergency Use Authorization (EUA). [facility] and [facility] are designated as high complexity laboratories by the Clinical Laboratory Improvement Amendments of 1988(CLIA) and are qualified to perform this test. Not Detected 2 100-125 mg/dL PRE-DIABET ES/FASTING >126 mg/dL DIABETES/FASTING 3 CHRONIC KIDNEY DISEASE STAGI NG PER NKF STAGE I & II GFR >= 60 NORMAL TO MILDLY DECREASED STAGE III GFR 30-59 MODERATELY DECREASED STAGE IV GFR 15-29 SEVERELY DECREASED STAGE V GFR <15 VERY LITTLE GFR LEFT ESRD GFR <15 ON ELECTRIC MOTOR CONTROLS ASSEMBLER Procedures Date Code Description Status 05/18/2021 05942 Est Prevent Med (18-39Yrs) Compl eted Medical Devices Description No Information Available Encounters Type Date Location Provider Dx Diagnosis Office Visit 05/18/2021 9:00a [facility] Dante Carbone MD Z00.00 Encntr for general adult medical exam w/ o abnormal findings Z00.01 Encounter for general adult medical exam w abnormal findings L40.9 Psoriasis, unspecified L40.59 Other psoriatic arthropathy K21.9 Gastro-esophageal reflux dis ease without esophagitis N48.9 Disorder of penis, unspecifi ed Z13.89 Encounter for screening for other disorder Assessments Date Code Description Provider 05/18/2021 Z00.00 [...] 05/18/2021 N48.9 Disorder of penis, unspecified C [email or web address] Carbone MD 05/18/2021 Z13.89 Encounter for screening for othe r disorder Dante Carbone MD Plan of Treatment Future Appointment(s):* 05/20/2022 9:00 am - Dante Carbone MD at [facility] 05/18/2021 - Dante Carbone MD* Z00.00 [...] MD CONSULT FOR SCREENING EGD DX: GERD Christiano pottsnt Notified 07/08/2021 [address] [facility] [address] [place] [address] [phone] [facility] CONSULT FOR PENILE PAIN Patient Notifi ed 06/03/2021 [address], [address] [place], [place] [id number] [phone]
--- OUTSIDE RECORDS SUMMARY | 2021-08-19 12:25 | CCD | Continuity of Care Document ---
Author Author John VAN Organization Unknown Address [address] [place] [address] Phone [phone] Care Team Providers Care Hospice Fellow Name Role Phone Dante Carbone MD AUTM [phone] Yordy Keys AUTM [phone] Problems Active Problems Provider Date Pick's disease [...] Available Procedures Date Code Description Status 05/31/2021 39077 Office/Outpatient Established Mo d MDM 30-39 Min Completed 12/15/2020 91587 Office/Outpatient Established Lo w MDM 20-29 Min Completed Medical Devices Description No Information Available Encounters Type Date Location Provider Dx Diagnosis Office Visit 05/31/2021 4:05p Main Office Mick Johnson J0 6.9 Acute upper respiratory infection, unspecified Z20.828 Contact w and exposure to ot h viral communicable diseases Office Visit 12/15/2020 4:40p Main Office PÉREZ Rider M79.1 0 Myalgia, unspecified site U07.1 [...]
--- OUTSIDE RECORDS SUMMARY | 2021-08-19 12:25 | CCD | Continuity of Care Document ---
Author Author John BLAND Organization Unknown Address [address] [place] [address], [address] [place] [address] Phone [phone] Care Team Providers Care Nursing Program Director Name Role Phone Dante Carbone MD @ [facility] Int AUTM Problems Description No Active Problems Social History Type Date Description Comments Sex Unknown ETOH Use 15-20 on the weekend Tobacco Use Start: Unknown Non Smoker Allergies, Adverse Reactions, Alerts Description No Known Drug Allergies Medications Active Medications SIG Qnty Indications Ordering Provide r Date Famotidine 40mg Tablets take 1 tablet by mouth every evening. 30tabs K21.9 Vance Allne MD 07/12/2021 Pantoprazole Sodium 40mg Table[address] DR [...] lb BMI (Body Mass Index) 24.7 kg/m2 [place] Body Weight 178 lb Weight 82.555 kg BSA (Body Surface Area) 2.05 m2 Results Description No Information Available Procedures Date Code Description Status 07/12/2021 21696 Office/Outpatient New Moderate M DM 45-59 Minutes Completed Medical Devices Description No Information Available Encounters Type Date Location Provider Dx Diagnosis Office Visit 07/12/2021 9:30a [facility] Julianna A Charlebois, RPA-C K21.9 Gastro-esophageal reflux dis ease without esophagitis R11.2 Nausea with vomiting, unspec ified R10.10 Upper abdominal pain, unspec ified R19.8 Oth symptoms and signs invol ving the dgstv sys and abdomen Assessments Date Code Description Provider 07/12/2021 K21.9 Gastro-esophageal reflux disease without esophagitis Julianna A NOLVIA Bland 07/12/2021 R11.2 Nausea with vomiting, unspecifie d Julianna Covarrubias NOLVIA Bland 07/12/2021 R10.10 Upper abdominal pain, unspecifie d Julianna Alegriaderek, NOLVIA 07/12/2021 R19.8 Other specified symp toms and signs involving the digestive system and abdomen NOLVIA Gandhi Plan of Treatment Future Appointment(s):* 08/19/2021 11:10 am - [facility] 07/12/2021 - NOLVIA Gandhi* K21.9 Gastro-esophageal reflux [...] Date Richard Lubin M.D. GERD Scheduled 07/12 [facility] [address] [facility], [address] [place], [place] [address] [phone]
--- OUTSIDE RECORDS SUMMARY | 2021-08-19 12:26 | CCD ---
Author Author [facility] Organization [facility] Address Unknown Phone Unavailable Care Team Providers Care Retail Assistant Name Role Phone Vasquez, Daniella [employer] Unavailable Unavailable Vasquez, Daniella [employer] Unavailable Unavailable Vasquez, Daniella [employer] Unavailable Unavailable Vasquez, Daniella [employer] Unavailable Unavailable Vasquez, Daniella [employer] Unavailable Unavailable Vasquez, Daniella [employer] Unavailable Unavailable Vasquez, Daniella [employer] Unavailable Unavailable Vasquez, Daniella [employer] Unavailable Unavailable Vasquez, Daniella [employer] Unavailable Unavailable Vasquez, Daniella [employer] Unavailable Unavailable Vasquez, Daniella [employer] Unavailable Unavailable Vasquez, Daniella [employer] Unavailable Unavailable Vasquez, Daniella [employer] SK[employer] Unavailable Unavailable Charlebois, A Julianna RPA C Unavailable Unavailable Charlebois, A Julianna RPA C Unavailable Unavailable Charlebois, A Julianna RPA C Unavailable Unavailable Charlebois, A Julianna RPA C Unavailable Unavailable Charlebois, A Julianna RPA C Unavailable Unavailable Charlebois, A Julianna RPA C Unavailable Unavailable Charlebois, A Julianna RPA C Unavailable Unavailable Charlebois, A Julianna RPA C Unavailable Unavailable Charlebois, A Julianna RPA C Unavailable Unavailable Charlebois, A Julianna RPA C Unavailable Unavailable Charlebois, A Julianna RPA C Unavailable Unavailable Charlebois, A Julianna RPA C Unavailable Unavailable Charlebois, A Julianna RPA C Unavailable Unavailable Charlebois, A Julianna RPA C Unavailable Unavailable Charlebois, A Julianna RPA C Unavailable Unavailable Charlebois, A Julianna RPA C Unavailable Unavailable Charlebois, A Julianna RPA C Unavailable Unavailable Charlebois, A Julianna RPA C Unavailable Unavailable Charlebois, A Julianna RPA C Unavailable Unavailable Charlebois, A Julianna RPA C Unavailable Unavailable Charlebois, A Julianna RPA C Unavailable Unavailable Charlebois, A Julianna RPA C Unavailable Unavailable Charlebois, A Julianna RPA C Unavailable Unavailable Charlebois, A Julianna RPA C Unavailable Unavailable Charlebois, A Julianna RPA C Unavailable Unavailable Charlebois, A Julianna RPA C Unavailable Unavailable Charlebois, A Julianna RPA C Unavailable Unavailable Charlebois, A Julianna RPA C Unavailable Unavailable Charlebois, A Julianna RPA C Unavailable Unavailable Charlebois, A Julianna RPA C Unavailable Unavailable Charlebois, A Julianna RPA C Unavailable Unavailable Charlebois, A Julianna RPA C Unavailable Unavailable Charlebois, A Julianna RPA C Unavailable Unavailable MCILVAIN, M ERIKA PA Unavailable Unavailable MCILVAIN, M ERIKA PA Unavailable Unavailable MCILVAIN, M ERIKA PA Unavailable Unavailable MCILVAIN, M ERIKA PA Unavailable Unavailable MCILVAIN, M ERIKA PA Unavailable Unavailable MCILVAIN, M ERIKA PA Unavailable Unavailable MCILVAIN, M ERIKA PA Unavailable Unavailable MCILVAIN, M ERIKA PA Unavailable Unavailable MCILVAIN, M ERIKA PA Unavailable Unavailable MCILVAIN, M ERIKA PA Unavailable Unavailable MCILVAIN, M ERIKA PA Unavailable Unavailable MCILVAIN, M ERIKA PA Unavailable Unavailable MCILVAIN, M ERIKA PA Unavailable Unavailable MCILVAIN, M ERIKA PA Unavailable Unavailable MCILVAIN, M ERIKA PA Unavailable Unavailable MCILVAIN, M ERIKA PA Unavailable Unavailable MCILVAIN, M ERIKA PA Unavailable Unavailable MCILVAIN, M ERIKA PA Unavailable Unavailable MCILVAIN, M ERIKA PA Unavailable Unavailable MCILVAIN, M ERIKA PA Unavailable Unavailable MCILVAIN, M ERIKA PA Unavailable Unavailable MCILVAIN, M ERIKA PA Unavailable Unavailable MCILVAIN, M ERIKA PA Unavailable Unavailable MCILVAIN, M ERIKA PA Unavailable Unavailable MCILVAIN, M ERIKA PA Unavailable Unavailable MCILVAIN, M ERIKA PA Unavailable Unavailable MCILVAIN, M ERIKA PA Unavailable Unavailable MCILVAIN, M ERIKA PA Unavailable Unavailable MCILVAIN, M ERIKA PA Unavailable Unavailable MCILVAIN, M ERIKA PA Unavailable Unavailable MCILVAIN, M ERIKA PA Unavailable Unavailable MCILVAIN, M ERIKA PA Unavailable Unavailable MCILVAIN, M ERIKA PA Unavailable Unavailable MCILVAIN, M ERIKA PA Unavailable Unavailable MCILVAIN, M ERIKA PA Unavailable Unavailable MCILVAIN, M ERIKA PA Unavailable Unavailable MCILVAIN, M ERIKA PA Unavailable Unavailable MCILVAIN, M ERIKA PA Unavailable Unavailable MCILVAIN, M ERIKA PA Unavailable Unavailable MCILVAIN, M ERIKA PA Unavailable Unavailable MCILVAIN, M ERIKA PA Unavailable Unavailable MCILVAIN, M ERIKA PA Unavailable Unavailable MCILVAIN, M ERIKA PA Unavailable Unavailable MCILVAIN, M ERIKA PA Unavailable Unavailable MCILVAIN, M ERIKA PA Unavailable Unavailable MCILVAIN, M ERIKA PA Unavailable Unavailable MCILVAIN, M ERIKA PA Unavailable Unavailable MCILVAIN, M ERIKA PA Unavailable Unavailable MCILVAIN, M ERIKA PA Unavailable Unavailable MCILVAIN, M ERIKA PA Unavailable Unavailable MCILVAIN, M ERIKA PA Unavailable Unavailable MCILVAIN, M ERIKA PA Unavailable Unavailable MCILVAIN, M ERIKA PA Unavailable Unavailable MCILVAIN, M ERIKA PA Unavailable Unavailable MCILVAIN, M ERIKA PA Unavailable Unavailable MCILVAIN, M ERIKA PA Unavailable Unavailable MCILVAIN, M ERIKA PA Unavailable Unavailable MCILVAIN, M ERIKA PA Unavailable Unavailable MCILVAIN, M ERIKA PA Unavailable Unavailable MCILVAIN, M ERIKA PA Unavailable Unavailable MCILVAIN, M ERIKA PA Unavailable Unavailable MCILVAIN, M ERIKA PA Unavailable Unavailable MCILVAIN, M ERIKA PA Unavailable Unavailable MCILVAIN, M ERIKA PA Unavailable Unavailable Bautista, Margarita Erin PA Unavailable Unavailable Bautista, Margarita Erin PA Unavailable Unavailable Bautista, Margarita Erin PA Unavailable Unavailable BautistaMargarita Erin PA Unavailable Unavailable BautistaMargarita Erin PA Unavailable Unavailable BautistaMargarita Erin PA Unavailable Unavailable BautistaMargarita Erin PA Unavailable Unavailable Bautista, Margarita Erin PA Unavailable Unavailable Bautista, Margarita Erin PA Unavailable Unavailable Bautista, Margarita Erin PA Unavailable Unavailable PICKERAL JR, J CHENCHO PA-C Unavailable Unavailable PICKERAL JR, J CHENCHO PA-C Unavailable Unavailable PICKERAL JR, J CHENCHO PA-C Unavailable Unavailable PICKERAL JR, J CHENCHO PA-C Unavailable Unavailable PICKERAL JR, J CHENCHO PA-C Unavailable Unavailable PICKERAL JR, J CHENCHO PA-C Unavailable Unavailable PICKERAL JR, J CHENCHO PA-C Unavailable Unavailable PICKERAL JR, J CHENCHO PA-C Unavailable Unavailable PICKERAL JR, J CHENCHO PA-C Unavailable Unavailable PICKERAL JR, J CHENCHO PA-C Unavailable Unavailable PICKERAL JR, J CHENCHO PA-C Unavailable Unavailable PICKERAL JR, J CHENCHO PA-C Unavailable Unavailable PICKERAL JR, J CHENCHO PA-C Unavailable Unavailable PICKERAL JR, J CHENCHO PA-C Unavailable Unavailable PICKERAL JR, J CHENCHO PA-C Unavailable Unavailable PICKERAL JR, J CHENCHO PA-C Unavailable Unavailable PICKERAL JR, J CHENCHO PA-C Unavailable Unavailable PICKERAL JR, J CHENCHO PA-C Unavailable Unavailable PICKERAL JR, J CHENCHO PA-C Unavailable Unavailable PICKERAL JR, J CHENCHO PA-C Unavailable Unavailable PICKERAL JR, J CHENCHO PA-C Unavailable Unavailable PICKERAL JR, J CHENCHO PA-C Unavailable Unavailable PICKERAL JR, J CHENCHO PA-C Unavailable Unavailable PICKERAL JR, J CHENCHO PA-C Unavailable Unavailable PICKERAL JR, J CHENCHO PA-C Unavailable Unavailable PICKERAL JR, J CHENCHO PA-C Unavailable Unavailable PICKERAL JR, J CHENCHO PA-C Unavailable Unavailable Jackie Carbone MD Unavailable Unavailable Jackie Carbone MD Unavailable Unavailable Jackie Carbone MD Unavailable Unavailable Jackie Carbone MD Unavailable Unavailable Jackie Carbone MD Unavailable Unavailable Jackie Carbone MD Unavailable Unavailable Jackie Carbone MD Unavailable Unavailable Jackie Carbone MD Unavailable Unavailable Jackie Carbone MD Unavailable Unavailable Jackie Carbone MD Unavailable Unavailable Jackie Carbone MD Unavailable Unavailable Jackie Carbone MD Unavailable Unavailable CooleemeeJackie MD Unavailable Unavailable CooleemeeJackie MD Unavailable Unavailable CooleemeeJackie MD Unavailable Unavailable CooleemeeJackie MD Unavailable Unavailable CooleemeeJackie MD Unavailable Unavailable CooleemeeJackie MD Unavailable Unavailable CooleemeeJackie MD Unavailable Unavailable CooleemeeJackie MD Unavailable Unavailable TonaJackie MD Unavailable Unavailable TonaJackie MD Unavailable Unavailable CooleemeeJackie MD Unavailable Unavailable TonaJackie MD Unavailable Unavailable TonaJackie MD Unavailable Unavailable CooleemeeJackie MD Unavailable Unavailable CooleemeeJackie MD Unavailable Unavailable CooleemeeJackie MD Unavailable Unavailable TonaJackie MD Unavailable Unavailable TonaJackie MD Unavailable Unavailable CooleemeeJackie MD Unavailable Unavailable TonaJackie MD Unavailable Unavailable TonaJackie MD Unavailable Unavailable CooleemeeJackie MD Unavailable Unavailable CooleemeeJackie MD Unavailable Unavailable CooleemeeJackie MD Unavailable Unavailable CooleemeeJackie MD Unavailable Unavailable TonaJackie MD Unavailable Unavailable CooleemeeJackie MD Unavailable Unavailable TonaJackie MD Unavailable Unavailable CooleemeeJackie MD Unavailable Unavailable CooleemeeJackie MD Unavailable Unavailable CooleemeeJackie MD Unavailable Unavailable CooleemeeJackie MD Unavailable Unavailable TonaJackie MD Unavailable Unavailable TonaJackie MD Unavailable Unavailable TonaJackie MD Unavailable Unavailable TonaJackie patel MD Unavailable Unavailable TonaJackie MD Unavailable Unavailable TonaJackie MD Unavailable Unavailable CooleemeeJackie MD Unavailable Unavailable TonaJackie MD Unavailable Unavailable CooleemeeJackie MD Unavailable Unavailable CooleemeeJackie MD Unavailable Unavailable TonaJackie MD Unavailable Unavailable CooleemeeJackie MD Unavailable Unavailable TonaJackie MD Unavailable Unavailable CooleemeeJackie MD Unavailable Unavailable TonaJackie MD Unavailable Unavailable CooleemeeJackie MD Unavailable Unavailable TonaJackie MD Unavailable Unavailable TonaJackie MD Unavailable Unavailable TonaJackie MD Unavailable Unavailable TonaJackie MD Unavailable Unavailable TonaJackie MD Unavailable Unavailable CooleemeeJackie MD Unavailable Unavailable CooleemeeJackie MD Unavailable Unavailable CooleemeeJackie MD Unavailable Unavailable Jackie Carbone MD Unavailable Unavailable Jackie Carbone MD Unavailable Unavailable Jackie Carbone MD Unavailable Unavailable Jackie Carbone MD Unavailable Unavailable Jackie Carbone MD Unavailable Unavailable Jackie Carbone MD Unavailable Unavailable TonaJackie patel MD Unavailable Unavailable Jackie Carbone MD Unavailable Unavailable Jackie Carbone MD Unavailable Unavailable Jackie Carbone MD Unavailable Unavailable Jackie Carbone MD Unavailable Unavailable Jackie Carbone MD Unavailable Unavailable Jackie Carbone MD Unavailable Unavailable Jackie Carbone MD Unavailable Unavailable Jackie Carbone MD Unavailable Unavailable Jackie Carbone MD Unavailable Unavailable Jackie Carbone MD Unavailable Unavailable Jackie Carbone MD Unavailable Unavailable REHAN, JAYLEEN PA Unavailable Unavailable REHAN, JAYLEEN PA Unavailable Unavailable REHAN, JAYLEEN PA Unavailable Unavailable REHAN, JAYLEEN PA Unavailable Unavailable REHAN, JAYLEEN PA Unavailable Unavailable REHAN, JAYLEEN PA Unavailable Unavailable REHAN, JAYLEEN PA Unavailable Unavailable REHAN, JAYLEEN PA Unavailable Unavailable REHAN, JAYLEEN PA Unavailable Unavailable REHAN, JAYLEEN PA Unavailable Unavailable REHAN, JAYLEEN PA Unavailable Unavailable REHAN, JAYLEEN PA Unavailable Unavailable REHAN, JAYLEEN PA Unavailable Unavailable REHAN, JAYLEEN PA Unavailable Unavailable REHAN, JAYLEEN PA Unavailable Unavailable REHAN, JAYLEEN PA Unavailable Unavailable REHAN, JAYLEEN PA Unavailable Unavailable REHAN, JAYLEEN PA Unavailable Unavailable REHAN, JAYLEEN PA Unavailable Unavailable REHAN, JAYLEEN PA Unavailable Unavailable REHAN, JAYLEEN PA Unavailable Unavailable REHAN, JAYLEEN PA Unavailable Unavailable REHAN, JAYLEEN PA Unavailable Unavailable REHAN, JAYLEEN PA Unavailable Unavailable REHAN, JAYLEEN PA Unavailable Unavailable REHAN, JAYLEEN PA Unavailable Unavailable REHAN, JAYLEEN PA Unavailable Unavailable REHAN, JAYLEEN PA Unavailable Unavailable REHAN, JAYLEEN PA Unavailable Unavailable REHAN, JAYLEEN PA Unavailable Unavailable REHAN, JAYLEEN PA Unavailable Unavailable REHAN, JAYLEEN PA Unavailable Unavailable REHAN, JAYLEEN PA Unavailable Unavailable REHAN, JAYLEEN PA Unavailable Unavailable REHAN, JAYLEEN PA Unavailable Unavailable REHAN, JAYLEEN PA Unavailable Unavailable Erika Palacios [employer]-C Unavailable Unavailabl e Philip, Erika Torres [employer]-C Unavailable Unavailabl e Philip, Erika Torres [employer]-C Unavailable Unavailabl e Philip, Erika Torres [employer]-C Unavailable Unavailabl e Philip, Erika Torres [employer]-C Unavailable Unavailabl e Philip, Erika Torres [employer]-C Unavailable Unavailabl e Philip, Erika Torres [employer]-C Unavailable Unavailabl e Philip, Erika Torres [employer] SK[employer]-C Unavailable Unavailabl e Philip, Erika Torres [employer]-C Unavailable Unavailabl e Philip, Erika Torres [employer]-C Unavailable Unavailabl e Philip, Erika Torres [employer]-C Unavailable Unavailabl e Philip, Erika Torres [employer] SK[employer]-C Unavailable Unavailabl e Philip, Erika Torres [employer] SK[employer]-C Unavailable Unavailabl e Philip, Erika Torres [employer] SK[employer]-C Unavailable Unavailabl e Philip, Erika Torres [employer]-C Unavailable Unavailabl e Philip, Erika Torres [employer] SK[employer]-C Unavailable Unavailabl e Philip, Erika Torres [employer] SK[employer]-C Unavailable Unavailabl e Philip, Erika Torres [employer]-C Unavailable Unavailabl e Philip, Erika Torres [employer] SK[employer]-C Unavailable Unavailabl e Philip, Erika Torres [employer]-C Unavailable Unavailabl e Philip, Erika Torres [employer] SK[employer]-C Unavailable Unavailabl e Philip, Erika Torres [employer]-C Unavailable Unavailabl e Philip, Erika Torres [employer] SK[employer]-C Unavailable Unavailabl e Philip, Erika Torres [employer]-C Unavailable Unavailabl e Philip, Erika Torres [employer]-C Unavailable Unavailabl e Philip, Erika Torres [employer]-C Unavailable Unavailabl e Philip, Erika Torres [employer]-C Unavailable Unavailabl e Philip, Erika Torres [employer]-C Unavailable Unavailabl e Philip, Erika Torres [employer] SK[employer]-C Unavailable Unavailabl e Philip, Erika Torres [employer]-C Unavailable Unavailabl e Philip, Erika Torres [employer] SK[employer]-C Unavailable Unavailabl e Philip, Erika Torres [employer]-C Unavailable Unavailabl e Philip, Erika Torres [employer]-C Unavailable Unavailabl e Philip, Erika Melissa [employer]-C Unavailable Unavailabl e Philip, Erika Torres [employer]-C Unavailable Unavailabl e Philip, Erika Torres [employer]-C Unavailable Unavailabl e Philip, Erika Torres [employer] SK[employer]-C Unavailable Unavailabl e Philip, Erika Santosnifer [employer] SK[employer]-C Unavailable Unavailabl e Philip, Erika Santosnifer [employer]-C Unavailable Unavailabl e Philip, Erika Santosnifer [employer]-C Unavailable Unavailabl e Philip, Erika Melissa [employer]-C Unavailable Unavailabl e Philip, Erika Melissa [employer] SK[employer]-C Unavailable Unavailabl e Philip, Erika Melissa [employer]-C Unavailable Unavailabl e Philip, Erika Melissa [employer] SK[employer]-C Unavailable Unavailabl e Philip, Erika Melissa [employer]-C Unavailable Unavailabl e Philip, Erika Melissa [employer] SK[employer]-C Unavailable Unavailabl e Philip, Erika Melissa [employer] SK[employer]-C Unavailable Unavailabl e Philip, Erika Santosnifer [employer]-C Unavailable Unavailabl e Philip, Erika Santosnifer [employer]-C Unavailable Unavailabl e Philip, Erika Santosnifer [employer]-C Unavailable Unavailabl e Philip, Erika Santosnifer [employer]-C Unavailable Unavailabl e Re-disclosure Warning The records that you are about to access may contain information from federally-assisted alcohol or drug abuse programs. If such information is present, then the following federally mandated warning applies: This information has been disclosed to you from records protected by federal confidentiality rules (42 CFR part 2). The federal rules prohibit you from making any further disclosure of this information unless further disclosure is expressly permitted by the written consent of the person to whom it pertains or as otherwise permitted by 42 CFR part 2. A general authorization for the release of medical or other information is NOT sufficient for this purpose. The Federal rules restrict any use of the information to criminally investigate or prosecute any alcohol or drug abuse patient.The records that you are about to access may contain highly sensitive health information, the redisclosure of which is protected by Article 27-F of the [facility] Public Health law. If you continue you may have access to information: Regarding HIV / AIDS; Provided by facilities licensed or operated by the [facility] Office of Mental Health; or Provided by the [facility] Office for People With Developmental Disabilities. If such information is present, then the following [facility] mandated warning applies: This information has been disclosed to you from confidential records which are protected by state law. State law prohibits you from making any further disclosure of this information without the specific written consent of the person to whom it pertains, or as otherwise permitted by law. Any unauthorized further disclosure in violation of state law may result in a fine or fpc sentence or both. A general authorization for the release of medical or other information is NOT sufficient authorization for further disc losure. Allergies and Adverse Reactions Type Description Substance Reaction Status Data Source(s ) Propensity to adverse reactions NO KNOWN ALLERGIES NO KNOWN ALLERGIES [facility] Family History Family Member Name Family Member Gender Family Member Status Date o f Status Description Data Source(s) Unknown Male Problem (finding) 09/12/2019 12:00:00 AM EST [facility] ([facility]) Encounters Encounter Providers Location Date Indications Data Source(s ) Outpatient [address] [place] [id number] 07/27/2021 12:00:00 AM EDT eCW1 ([facility]) Outpatient [address] [place] [id number] 07/14/2021 12:00:00 AM EDT eCW1 ([facility]) Outpatient Attender: Julianna Navarro/Derek/Marci phillip/Alejandro 07/12/2021 09:30:00 AM EDT [facility] ([facility]) Outpatient [address] [place] [id number] 06/17/2021 12:00:00 AM EDT eCW1 ([facility]) Outpatient [address] [place] [id number] 06/03/2021 12:00:00 AM EDT eCW1 ([facility]) Outpatient Attender: JAYLEEN bass 05/31/2021 04:05:00 PM EDT [facility] ([facility]) Outpatient Attender: Dante Zuniga 0 05/18/2021 09:00:00 AM EDT [facility] ([facility] ) Outpatient [address] [facility] [address] 04/29/2021 12:00:00 AM EDT eCW1 ([facility]) Attender: Melissa MENA [facility] 03/30/2021 07:33:00 AM EDT - 03/30/2021 07:33:00 AM EDT [facility] ( [facility]) Unknown [address] [facility] [address] 03/30/2021 12:00:00 AM EDT eCW1 ([facility]) Attender: Melissa MENA [facility] 03/19/2021 10:19:00 AM EDT - 03/19/2021 10:19:00 AM EDT [facility] ( [facility]) Attender: ERIKA OR[facility]Z [facility] 03/18/2021 03:35:00 PM EDT - 03/18/2021 03:35:00 PM EDT [facility] ( [facility]) Unknown [address] [facility] [place] [address] 03/02/2021 12:00:00 AM EDT eCW1 ([facility]) OFFICE/OUTPATIENT VISIT, ESTOutpatient Attender: Melissa Loco [facility] 02/26/2021 11:40:00 AM EDT - 02/26/2021 11:40:00 AM EDT Other fpc (current) drug therapyOt her psoriatic arthropathy [facility] ([facility]) Other fpc (current) drug therapy Other psoriatic arthropathy Unknown [address] [facility] [address] 02/26/2021 12:00:00 AM EDT eCW1 ([facility]) [facility]: [facility] 02/01/2021 11:56:00 AM EDT - 02/01/2021 11:56:00 AM EDT [facility] ( [facility]) [facility] [address] [place] [address] 12/30/2020 12:00:00 AM EST eCW1 ([facility]) Outpatient Attender: Erin park 12/15/2020 03:40:00 PM EST [facility] ([facility]) Outpatient Attender: CHENCHO DILL JR Tona Zuniga 0 12/03/2020 12:00:00 PM EST [facility] ([facility] ) OutpatientOFFICE/OUTPATIENT VISIT, EST Attender: Melissa Loco [facility] 11/27/2020 11:40:00 AM EST - 11/27/2020 11:40:00 AM EST Other adjunct faculty for medical terminology (current) drug therapyOt her psoriatic arthropathy [facility] ([facility]) Other fpc (current) drug therapy Other psoriatic arthropathy Attender: Melissa MENA [facility] 08/31/2020 10:42:00 AM EST - 08/31/2020 10:42:00 AM EST [facility] ( [facility]) Outpatient Attender: Daniella braun 08/12/2020 03:30:00 PM EDT [facility] ([facility]) Attender: Melissa MENA [facility] 07/24/2020 11:40:00 AM EDT - 07/24/2020 11:40:00 AM EDT Other adjunct faculty for medical terminology (current) drug therapyOther psoriatic arthropathy [facility] ([facility]) Other adjunct faculty for medical terminology (current) drug therapy Other psoriatic arthropathy Medications Medication Brand Name Start Date Product Form Dose Route Admi nistrative Instructions Pharmacy Instructions Status Indications Reaction Description Data Source(s) Sulfamethoxazole 800 MG / Trimethoprim 1 60 MG Oral Tablet [Bactrim] Bactrim DS 800-160 MG Bactrim DS 800-160 MG 07/14/2021 12:00:00 AM EDT 1.0 {table t} active Bactrim DS 800-160 MG eCW1 ( [facility]) Sulfamethoxazole 800 MG / Trimethoprim 1 60 MG Oral Tablet [Bactrim] Bactrim DS 800-160 MG Bactrim DS 800-160 MG 07/14/2021 12:00:00 AM EDT 1.0 {table t} active Bactrim DS 800-160 MG eCW1 ( [facility]) Famotidine 40 MG Oral Tablet Famotidine 07/12/2021 12:00:00 AM EDT ORAL active MEDENT ([facility], ) Sulfamethoxazole 800 MG / Trimethoprim 1 60 MG Oral Tablet Sulfamethoxazole- Trimethoprim 800-160 MG Sulfamethoxazole-Trimethoprim 800-160 MG 06/03/2021 12:00:00 AM EDT 1.0 {tablet} active Sulfamethoxazole-Trimethoprim 800-160 MG eCW1 ([facility]) Sulfamethoxazole 800 MG / Trimethoprim 1 60 MG Oral Tablet Sulfamethoxazole- Trimethoprim 800-160 MG Sulfamethoxazole-Trimethoprim 800-160 MG 06/03/2021 12:00:00 AM EDT 1.0 {tablet} active Sulfamethoxazole-Trimethoprim 800-160 MG eCW1 ([facility]) Sulfamethoxazole 800 MG / Trimethoprim 1 60 MG Oral Tablet Sulfamethoxazole- Trimethoprim 800-160 MG Sulfamethoxazole-Trimethoprim 800-160 MG 06/03/2021 12:00:00 AM EDT 1.0 {tablet} suspended Sulfamethoxazole-Trimethoprim 800-160 MG eCW1 ([facility]) Sulfamethoxazole 800 MG / Trimethoprim 1 60 MG Oral Tablet Sulfamethoxazole- Trimethoprim 800-160 MG Sulfamethoxazole-Trimethoprim 800-160 MG 06/03/2021 12:00:00 AM EDT 1.0 {tablet} suspended Sulfamethoxazole-Trimethoprim 800-160 MG eCW1 ([facility]) 1 ML secukinumab 150 MG/ML Prefilled Syringe [Cosentyx] Cose ntyx 05/18/2021 12:00:00 AM EDT active M EDENT ([facility]) 1 ML secukinumab 150 MG/ML Auto-Injector [Cosentyx] Cosentyx Pen 300 mg/2 Pens (150 mg/mL) subcutaneous Cosentyx Pen 300 mg/2 Pens (150 mg/mL) subcutaneous 02/26/2021 12:00:00 AM EDT 1 mL SUBCUTANEOUS active 1 ML secukinumab 150 MG/ML Auto-Injector [Cosentyx] [facility] ([facility]) 1 ML secukinumab 150 MG/ML Auto-Injector [Cosentyx] Cosentyx Pen 300 mg/2 Pens (150 mg/mL) subcutaneous Cosentyx Pen 300 mg/2 Pens (150 mg/mL) subcutaneous 02/26/2021 12:00:00 AM EDT active 1 ML secukinumab 150 MG/ML Auto- Injector [Cosentyx] [facility] ([facility]) Triamcinolone Acetonide 1 MG/ML Topical Cream Triamcin olone Acetonide 0.1 % Triamcinolone Acetonide 0.1 % 02/25/2021 12:00:00 AM EDT 1.0 {appli cation} active Triamcinolone Acetonide 0 .1 % eCW1 ([facility]) imiquimod 50 MG/ML Topical Cream Imiquimod 5 % Imiquimod 5 % 02/25/2021 12:00:00 AM EDT active Imiquimod 5 % eC W1 ([facility]) Triamcinolone Acetonide 1 MG/ML Topical Cream Triamcin olone Acetonide 0.1 % Triamcinolone Acetonide 0.1 % 02/25/2021 12:00:00 AM EDT 1.0 {appli cation} active Triamcinolone Acetonide 0 .1 % eCW1 ([facility]) Triamcinolone Acetonide 1 MG/ML Topical Cream Triamcin olone Acetonide 0.1 % Triamcinolone Acetonide 0.1 % 02/25/2021 12:00:00 AM EDT 1.0 {appli cation} active Triamcinolone Acetonide 0 .1 % eCW1 ([facility]) Triamcinolone Acetonide 1 MG/ML Topical Cream Triamcin olone Acetonide 0.1 % Triamcinolone Acetonide 0.1 % 02/25/2021 12:00:00 AM EDT 1.0 {appli cation} active Triamcinolone Acetonide 0 .1 % eCW1 ([facility]) Triamcinolone Acetonide 1 MG/ML Topical Cream Triamcin olone Acetonide 0.1 % Triamcinolone Acetonide 0.1 % 02/25/2021 12:00:00 AM EDT 1.0 {appli cation} active Triamcinolone Acetonide 0 .1 % eCW1 ([facility]) imiquimod 50 MG/ML Topical Cream Imiquimod 5 % Imiquimod 5 % 02/25/2021 12:00:00 AM EDT active Imiquimod 5 % eC W1 ([facility]) imiquimod 50 MG/ML Topical Cream Imiquimod 5 % Imiquimod 5 % 02/25/2021 12:00:00 AM EDT active Imiquimod 5 % eC W1 ([facility]) imiquimod 50 MG/ML Topical Cream Imiquimod 5 % Imiquimod 5 % 02/25/2021 12:00:00 AM EDT active Imiquimod 5 % eC W1 ([facility]) imiquimod 50 MG/ML Topical Cream Imiquimod 5 % Imiquimod 5 % 02/25/2021 12:00:00 AM EDT active Imiquimod 5 % eC W1 ([facility]) Triamcinolone Acetonide 1 MG/ML Topical Cream Triamcin olone Acetonide 0.1 % Triamcinolone Acetonide 0.1 % 02/25/2021 12:00:00 AM EDT 1.0 {appli cation} active Triamcinolone Acetonide 0 .1 % eCW1 ([facility]) imiquimod 50 MG/ML Topical Cream Imiquimod 5 % Imiquimod 5 % 02/25/2021 12:00:00 AM EDT active Imiquimod 5 % eC W1 ([facility]) imiquimod 50 MG/ML Topical Cream Imiquimod 5 % Imiquimod 5 % 02/25/2021 12:00:00 AM EDT active Imiquimod 5 % eC W1 ([facility]) Triamcinolone Acetonide 1 MG/ML Topical Cream Triamcin olone Acetonide 0.1 % Triamcinolone Acetonide 0.1 % 02/25/2021 12:00:00 AM EDT 1.0 {appli cation} active Triamcinolone Acetonide 0 .1 % eCW1 ([facility]) imiquimod 50 MG/ML Topical Cream Imiquimod 5 % Imiquimod 5 % 02/25/2021 12:00:00 AM EDT active Imiquimod 5 % eC W1 ([facility]) Triamcinolone Acetonide 1 MG/ML Topical Cream Triamcin olone Acetonide 0.1 % Triamcinolone Acetonide 0.1 % 02/25/2021 12:00:00 AM EDT 1.0 {appli cation} active Triamcinolone Acetonide 0 .1 % eCW1 ([facility]) Ondansetron 4 MG Disintegrating Oral Tablet Ondansetron 02/22/2021 12:00:00 AM EDT active MED[facility] ([facility]) HUMIRA PEN (2/BOX) 40MG/0.4ML 0.4 ML adalimumab 100 MG/ML Au to-Injector 02/01/2021 12:00:00 AM EDT completed 0.4 ML adalimumab 100 MG/ML Auto-Injector [Humira] [facility] ([facility]) valacyclovir 500 MG Oral Tablet Valacyclovir HCL 01/26/2021 12:00:00 AM EDT ORAL active MED[facility] ([facility]) valacyclovir 1000 MG Oral Tablet Valacyclovir HCL 01/15/2021 12:00: 00 AM EDT completed MED[facility] ([facility]) Ibuprofen 800 MG Oral Tablet Ibuprofen 12/03/2020 12:00:00 AM EST active MED[facility] ([facility]) Prednisone 5 MG Oral Tablet prednisone 5 mg tablet prednison e 5 mg tablet 11/27/2020 12:00:00 AM EST 4 {tbl} ORAL completed take 4 Tablet by oral route every day for 4 days then decrease by 1 tab every 4 days [facility] ([facility]) Humira(CF) Pen 40 mg/0.4 mL subcutaneous kit 0.4 ML ad alimumab 100 MG/ML Auto-Injector 11/27/2020 12:00:00 AM EST comp leted 0.4 ML adalimumab 100 MG/ML Auto-Injector [Humira] [facility] ([facility]) Humira(CF) Pen 40 mg/0.4 mL subcutaneous kit 0.4 ML ad alimumab 100 MG/ML Auto-Injector 11/27/2020 12:00:00 AM EST comp leted 0.4 ML adalimumab 100 MG/ML Auto-Injector [Humira] [facility] ([facility]) Fluoxetine 20 MG Oral Capsule Fluoxetine HCL 11/11/2020 12:00:[address] ORAL active MED[facility] ([facility]) Prednisone 10 MG Oral Tablet Prednisone 10/25/2020 12:00:00 AM EST ORAL completed MED[facility] ([facility]) HUMIRA PEN (2/BOX) 40MG/0.4ML 0.4 ML adalimumab 100 MG/ML Au to-Injector 08/31/2020 12:00:00 AM EST completed 0.4 ML adalimumab 100 MG/ML Auto-Injector [Humira] [facility] ([facility]) Insurance Providers Payer name Policy type / Coverage type Policy ID Covered libertarian ID Covered libertarian's relationship to hamilton Policy [place] Plan Information [facility] [employer] (HMO) [id number] Family Dependent [id number] [facility] [employer] Maintenance [employer] (O) [id number] Family Dependent [id number] [facility]([place]) Commercial [id number] Family Dependent [id number] [place] Plan F [id number] PARENT [id number] [place] Plan F [id number] PARENT [id number] [place] Plan F [id number] PARENT [id number] Pupil [employer] F [id number] PARENT [id number] Pupil Benefits (pr) Commercial [id number] Family Dependent [id number] [facility] U [id number] Child [id number] PUPIL BENEFITS PLAN U [id number] Self [id number] [place] [facility] Health Maintenance Organization ([facility] 8 [id number] Family Dependent [id number] [facility] ([facility] 8 [id number] Family Dependent [id number] [facility] ([facility] 8 [id number] Family Dependent [id number] [facility] [id number] Family Dependent [id number] [facility] [id number] Family Dependent 8 [id number] [facility] [id number] Family Dependent [id number] Medicaid Medicaid [id number] Family Dependent [id number] [employer] [place] DIV [id number] MO2 [id number] [facility] [id number] MO2 [id number] [facility] [id number] SO2 [id number] BILLING [employer]ACT[employer] FOR TRANS[employer] 1 SP 1 ANSI-Commercial [id number] ANSI-Commercial [id number] ANSI-Commercial [id number] ANSI-Commercial [id number] [employer] [place] [employer] DIV [id number] MO2 [id number] [facility] [id number] Family Dependent [id number] [facility] [id number] Family Dependent [id number] Problems, Conditions, and Diagnoses Code Display Name Description Problem Type Effective Dates Data Source(s) N41.1 [id number] Chronic prostatitis Problem 07/14/2021 12:00 :00 AM EDT eCW1 ([facility]) N48.89 Penile pain Penile pain Problem 06/03/2021 12:00:00 AM EDT eCW1 ([facility]) Surgeries/Procedures Procedure Description Date Indications Data Source(s) OFFICE OUTPATIENT NEW 45 MINUTES 07/12/2021 12:00:00 A M EDT [facility] ([facility], ) OFFICE OUTPATIENT VISIT 25 MINUTES 05/31/2021 12:00:00 AM EDT [facility] ([facility]) PERIODIC PREVENTIVE MED EST PATIENT 18-39 YRS 05/18/20 12:00:00 AM EDT [facility] ([facility]) OFFICE/OUTPATIENT VISIT, EST 02/26/2021 12:00:00 AM EDT - 02/26/2021 12:00:00 AM EDT [facility] ([facility]) ALANINE AMINO (ALT) (SGPT) 02/26/2021 12 :00:00 AM EDT - 02/26/2021 12:00:00 AM EDT [facility] ([facility]) TRANSFERASE (AST) (SGOT) 02/26/2021 12:0 0:00 AM EDT - 02/26/2021 12:00:00 AM EDT [facility] ([facility]) ASSAY OF UREA NITROGEN 02/26/2021 12:00: 00 AM EDT - 02/26/2021 12:00:00 AM EDT [facility] ([facility]) ASSAY OF CREATININE 02/26/2021 12:00:00 AM EDT - 02/26 12:00:00 AM EDT [facility] ([facility]) C-REACTIVE PROTEIN 02/26/2021 12:00:00 AM EDT - 2020 12:00:00 AM EDT [facility] ([facility]) RBC SED RATE, AUTOMATED 02/26/2021 12:00 :00 AM EDT - 02/26/2021 12:00:00 AM EDT [facility] ([facility]) COMPLETE CBC W/AUTO DIFF WBC 02/26/2021 12:00:00 AM EDT - 02/26/2021 12:00:00 AM EDT [facility] ([facility]) ROUTINE VENIPUNCTURE 02/26/2021 12:00:00 AM EDT - 02/26/2021 12:00:00 AM EDT [facility] ([facility]) OFFICE OUTPATIENT VISIT 15 MINUTES 12/15/2020 12:00:00 AM EST [facility] ([facility]) OFFICE OUTPATIENT VISIT 15 MINUTES 12/03/2020 12:00:00 AM EST [facility] ([facility]) OFFICE/OUTPATIENT VISIT, EST 11/27/2020 12:00:00 AM EST - 11/27/2020 12:00:00 AM EST [facility] ([facility]) ALANINE AMINO (ALT) (SGPT) 11/27/2020 12 :00:00 AM EST - 11/27/2020 12:00:00 AM EST [facility] ([facility]) TRANSFERASE (AST) (SGOT) 11/27/2020 12:0 0:00 AM EST - 11/27/2020 12:00:00 AM EST [facility] ([facility]) ASSAY OF UREA NITROGEN 11/27/2020 12:00: 00 AM EST - 11/27/2020 12:00:00 AM EST [facility] ([facility]) ASSAY OF CREATININE 11/27/2020 12:00:00 AM EST - 11/27 12:00:00 AM EST [facility] ([facility]) RBC SED RATE, AUTOMATED 11/27/2020 12:00 :00 AM EST - 11/27/2020 12:00:00 AM EST [facility] ([facility]) COMPLETE CBC W/AUTO DIFF WBC 11/27/2020 12:00:00 AM EST - 11/27/2020 12:00:00 AM EST [facility] ([facility]) ROUTINE VENIPUNCTURE 11/27/2020 12:00:00 AM EST - 11/27/2020 12:00:00 AM EST [facility] ([facility]) Results ID Date Data Source [id number] 08/14/2021 09:30:00 AM EDT MEDENT ([facility]) Name Value Range Interpretation Code Description Data Caitie rce(s) Supporting Document(s) Coronavirus 2019 Nasopharygeal Laboratory test result [facility] ([facility]) ASSAY INFORMATION: Real Time RT-PCR NOTE: The COVID-19 assay has been cleared by the U.S. Food and Drug Administration under the Emergency Use Authorization (EUA). [employer] and [employer] are designated as high complexity laboratories by the Clinical Laboratory Improvement Amendments of 1988(CLIA) and are qualified to perform this test. Not Detected ID Date Data Source URINE CULTURE 06/03/2021 12:00:00 AM EDT eCW1 ([facility]) Name Value Range Interpretation Code Description Data Caitie rce(s) Supporting Document(s) URINE CULTURE eCW1 ([facility]) ID Date Data Source UA URINALYSIS 06/03/2021 12:00:00 AM EDT eC1 ([facility]) Name Value Range Interpretation Code Description Data Caitie rce(s) Supporting Document(s) UA URINALYSIS eCW1 ([facility]) ID Date Data Source CHLAMYDIA & GC DNA AMPLIFICAT 06/03/2021 12:00:00 AM EDT eCW 1 ([facility]) Name Value Range Interpretation Code Description Data Caitie rce(s) Supporting Document(s) Chlamydia trachomatis rRNA [Presence] in Unspecified specimen by Probe and target amplification method NEGATIVE NEGATIVE CHLAMYDIA DNA AMPLIFICATION [facility] ([facility]) ID Date Data Source [id number] 05/31/2021 12:00:00 AM EDT [facility] Name Value Range Interpretation Code Description Data Caitie rce(s) Supporting Document(s) SARS-CoV2 Rapid Antigen Negative [facility] This lab was reported by [facility]. ID Date Data Source [id number] 09/15/2020 12:00:00 AM EST [facility] Name Value Range Interpretation Code Description Data Caitie rce(s) Supporting Document(s) SARS coronavirus 2 Ag [facility] This lab was ordered by [facility] and reported by [facility]. ID Date Data Source [id number] 08/12/2020 12:00:00 AM EDT [facility] Name Value Range Interpretation Code Description Data Caitie rce(s) Supporting Document(s) SARS coronavirus 2 Ag [facility] This lab was ordered by [facility] and reported by [facility]. ID Date Data Source [id number] 05/18/2021 09:51:00 AM EDT MED[facility] ([facility]) Name Value Range Interpretation Code Description Data Caitie rce(s) Supporting Document(s) Cholesterol [Mass/volume] in Serum or Plasma 171 mg/dL 131-200 [facility] ([facility]) Triglyceride [Mass/volume] in Serum or Plasma 139 mg/dL 30-150 [facility] ([facility]) Cholesterol in HDL [Mass/volume] in Serum or Plasma 37 mg/dL 35-60 [facility] ([facility]) Cholesterol in LDL [Mass/volume] in Serum or Plasma by calcu lation 106 CALC 50-159 [facility] ([facility]) ID Date Data Source [id number] 05/18/2021 09:51:00 AM EDT [facility] ([facility]) Name Value Range Interpretation Code Description Data Caitie rce(s) Supporting Document(s) Glucose [Mass/volume] in Serum or Plasma 98 mg/dL 74-99 [facility] ([facility]) 100-125 mg/dL PRE-DIABETES/FASTING >126 mg/dL DIABETES/FASTING Urea nitrogen [Mass/volume] in Serum or Plasma 19 mg/dL 7-18 [facility] ([facility]) Creatinine 1.0 mg/dL 0.6-1.3 [facility] ([facility]) Sodium [Moles/volume] in Serum or Plasma 140 meq/L 136-145 [facility] ([facility]) Chloride [Moles/volume] in Serum or Plasma 103 meq/L 98-107 [facility] ([facility]) Potassium [Moles/volume] in Serum or Plasma 4.3 meq/L 3.5-5.1 [facility] ([facility]) Carbon dioxide, total [Moles/volume] in Serum or Plasma 33 meq/L 21 -32 [facility] ([facility]) Calcium [Mass/volume] in Serum or Plasma 9.9 mg/dL 8.5-10.1 [facility] ([facility]) Aspartate aminotransferase [Enzymatic activity/volume] in Serum or Plasma 29 U/L 15-37 [facility] ([facility] ) Alkaline phosphatase isoenzyme [Units/volume] in Serum or Pl asma 87 mg/dL 46-116 [facility] Total Bilirubin 0.5 mg/dL 0.2-1.0 [facility] ([facility]) Proteinase 3 Ab [Units/volume] in Serum 7.6 g/dL 6.4-8.2 [facility] ([facility]) Albumin [Mass/volume] in Serum or Plasma 4.5 g/dL 3.4-5.0 [facility] ([facility]) Alanine aminotransferase [Enzymatic activity/volume] in Seru m or Plasma 29 U/L 12-78 [facility] ([facility]) Glomerular filtration rate/1.73 sq M pre dicted among non-blacks [Volume Rate/Area] in Serum or Plasma by Creatinine-based formula (MDRD) Laboratory test result [facility] ([facility] ) A/G Ratio 1.45 CALC 1.00-1.90 [facility] ([facility]) Glomerular filtration rate/1.73 sq M pre dicted among blacks [Volume Rate/Area] in Serum or Plasma by Creatinine-based formula (MDRD) Laboratory test result [facility] ([facility]) <content>CHRONIC KIDNEY DISEASE STAGING PER NKF</content>
<content></content>
<content>STAGE I & II GFR >= 60 NORMAL TO MILDLY DECREASED</content>
<content>STAGE III GFR 30-59 MODERATELY DECREASED</content>
<content>STAGE IV GFR 15-29 SEVERELY DECREASED</content>
<content>STAGE V GFR <15 VERY LITTLE GFR LEFT</content>
<content>ESRD GFR <15 ON MAINSPRING FORMER BRACE END</content>
<content></content> ID Date Data Source [id number] 05/18/2021 09:51:00 AM EDT [facility] ([facility]) Name Value Range Interpretation Code Description Data Caitie rce(s) Supporting Document(s) Leukocytes [#/volume] in Blood by Automated count 4.9 x10*3/UL 4.1-10 .9 [facility] ([facility]) Erythrocytes [#/volume] in Blood by Automated count 4.95 x10*6/UL 4.2 0-6.30 [facility] Hemoglobin [Mass/volume] in Blood 15.3 g/dL 12.0-18.0 [facility] Hematocrit [Volume Fraction] of Blood by Automated count 44.0 % 3 7.0-51.0 [facility] MCV 88.7 fL 80.0-97.0 [facility] ([facility]) MCHC 34.9 g/dL 31.0-38.0 [facility] ([facility]) Erythrocyte distribution width [Ratio] by Automated count 12.5 % 11.6-13.7 [facility] ([facility]) MCH 31.0 pg 26.0-32.0 [facility] ([facility]) Lymph % 26.4 % 10.0-58.5 [facility] ([facility]) MPV 8.9 FL 7.8-11.0 [facility] ([facility]) Platelets [#/volume] in Blood by Automated count 146 x10*3/UL 140-440 [facility] ([facility]) Neut % 66.9 % 37.0-92.0 [facility]) Mid % 6.7 % 1.7-9.3 [facility]) Lymph # 1.2 x10*3/UL 0.6-4.1 [facility] ([facility]) Neut # 3.2 x10*3/UL 2.0-7.8 [facility] ([facility]) Mid # 0.5 x10*3/UL 0.1-0.6 [facility] ([facility]) ID Date Data Source [id number] 02/26/2021 12:13:00 PM EDT [facility] ([facility]) Name Value Range Interpretation Code Description Data Caitie rce(s) Supporting Document(s) <0.2 0.0-0.5 CRP [facility] ([facility]) ID Date Data Source [id number] 02/26/2021 12:13:00 PM EDT [facility] ([facility]) Name Value Range Interpretation Code Description Data Caitie rce(s) Supporting Document(s) >60 eGFR Non- [facility] ([facility]) 1.1 mg/dL 0.9-1.2 CREATININE [facility] ([facility]) >60 eGFR [facility] ([facility]) ID Date Data Source [id number] 02/26/2021 12:13:00 PM EDT [facility] ([facility]) Name Value Range Interpretation Code Description Data Caitie rce(s) Supporting Document(s) 22 mg/dL 10-23 BUN [facility] ([facility]) ID Date Data Source [id number] 02/26/2021 12:13:00 PM EDT [facility] ([facility]) Name Value Range Interpretation Code Description Data Caitie rce(s) Supporting Document(s) 29 U/L 15-37 AST [facility] ([facility]) ID Date Data Source [id number] 02/26/2021 12:13:00 PM EDT [facility] ([facility]) Name Value Range Interpretation Code Description Data Caitie rce(s) Supporting Document(s) 39 U/L 30-65 ALT [facility] ([facility]) ID Date Data Source [id number] 02/26/2021 12:13:00 PM EDT [facility] ([facility]) Name Value Range Interpretation Code Description Data Caitie rce(s) Supporting Document(s) 6 mm/Hr 0-20 ESR [facility] ([facility]) ID Date Data Source [id number] 02/26/2021 12:13:00 PM EDT [facility] ([facility]) Name Value Range Interpretation Code Description Data Caitie rce(s) Supporting Document(s) Negative SeeBelow T-SPOT.TB [facility] ([facility]) Normal Value: NegativeA negative test re sult does not exclude the possibility ofexposure to or infection with Mycobacterium tuberculosis (M.tuberculosis). Patients with recent exposure to TBinfected individuals exhibiting a negative T- SPOT.TB resultshould be considered for retesting within 6 weeks or ifother relevant clinical symptoms indicate. Results fromT-SPOT.TB testing must be used in conjunction with eachindividual's epidemiological history, current medicalstatus, and results of other diagnostic evaluations. TheT-SPOT.TB test is qualitative and results are reported aspositive, borderline or negative, given that the testcontrols perform as expected. In line with the Centers forDisease Control and Prevention's 2010 recommendation toreport quantitative measurements alongside the qualitativeresult, the laboratory provides spot counts forinformational purposes only. The T-SPOT.TB test should notbe interpreted as a quantitative test.

0 PANEL A SPOT COUNT CORREC BOO FOR NEG CONTROL [facility] ([facility]) 1 PANEL B SPOT COUNT CORREC BOO FOR NEG CONTROL [facility] ([facility]) Passed NEGATIVE CONTROL [facility] Passed POSITIVE CONTROL [facility] ID Date Data Source [id number] 02/26/2021 12:13:00 PM EDT [facility] ([facility]) Name Value Range Interpretation Code Description Data Caitie rce(s) Supporting Document(s) 6.1 10*3/uL 3.7-10.1 WBC [facility] ([facility]) 5.24 10*6/uL 4.00-5.90 RBC [facility] ([facility]) 16.4 g/dL 13.0-18.0 HGB [facility] 49.2 % 39.0-55.0 HCT [facility] ([facility]) 93.9 fL 70.0-100.0 MCV [facility] ([facility]) 31.3 pg 26.0-34.0 MCH [facility] ([facility]) 33.4 g/dL 31.0-37.0 MCHC [facility] ([facility]) 164 10*3/uL 150-500 PLATELETS [facility] ([facility]) 12.0 % 10.0-15.0 RDW [facility] 8.3 fL 6.0-10.0 MPV [facility] 3.49 10*3/uL 2.10-8.00 BRAVO# [employer] ([facility]) 1.81 10*3/uL 1.00-5.00 LYM# [employer] ([facility]) 0.66 10*3/uL 0.10-1.00 MONO# [employer] ([facility]) 0.1 10*3/uL 0.0-0.5 EOS# [employer] ([facility]) 0.1 10*3/uL 0.0-0.2 BASO# [facility] ([facility] [facility]) 57.4 % 50.0-80.0 BRAVO% [facility] 10.8 % 2.0-10.0 Above high normal MONO% [facility] ([facility]) 29.7 % 25.0-50.0 LYM% [facility]Gen ([facility]) 1.1 % 0.0-5.0 EOS% [facility] ([facility] 1.0 % 0.0-4.0 BASO% [facility] ([facility]) ID Date Data Source [id number] 02/28/2021 07:29:00 PM EDT [facility] FASTING: UNKNOWNReceived: 02/27/2021 at 09:01:00 V6O: [facility], , [address] [place] [address], [id number], Eladio Kaye MD,PhD Name Value Range Interpretation Code Description Data Caitie rce(s) Supporting Document(s) Mycobacterium tuberculosis stimulated gamma interferon [Pres ence] in Blood SeeBelow [facility] Normal Value: NegativeA negative test re sult does not exclude the possibility ofexposure to or infection with Mycobacterium tuberculosis (M.tuberculosis). Patients with recent exposure to TBinfected individuals exhibiting a negative T- SPOT.TB resultshould be considered for retesting within 6 weeks or ifother relevant clinical symptoms indicate. Results fromT-SPOT.TB testing must be used in conjunction with eachindividual's epidemiological history, current medicalstatus, and results of other diagnostic evaluations. TheT-SPOT.TB test is qualitative and results are reported aspositive, borderline or negative, given that the testcontrols perform as expected. In line with the Centers forDisease Control and Prevention's 2010 recommendation toreport quantitative measurements alongside the qualitativeresult, the laboratory provides spot counts forinformational purposes only. The T-SPOT.TB test should notbe interpreted as a quantitative test.01 Gamma interferon negative control spot count [#] in Blood Passed [facility] Mitogen stimulated gamma interferon positive control s pot count [#] in Blood Passed [facility] ID Date Data Source [id number] 11/27/2020 12:11:00 PM EST NextGen ([facility]) Name Value Range Interpretation Code Description Data Caitie rce(s) Supporting Document(s) 1.1 mg/dL 0.9-1.2 CREATININE NextGen ([facility]) >60 eGFR Non- Next Gen ([facility]) >60 eGFR NextGen ([facility]) ID Date Data Source [id number] 11/27/2020 12:11:00 PM EST NextGen ([facility]) Name Value Range Interpretation Code Description Data Caitie rce(s) Supporting Document(s) 19 mg/dL 10-23 BUN [facility] ([facility]) ID Date Data Source [id number] 11/27/2020 12:11:00 PM EST NextGen ([facility]) Name Value Range Interpretation Code Description Data Caitie rce(s) Supporting Document(s) 24 U/L 15-37 AST [facility] ID Date Data Source [id number] 11/27/2020 12:11:00 PM EST NextGen ([facility]) Name Value Range Interpretation Code Description Data Caitie rce(s) Supporting Document(s) 38 U/L 30-65 ALT [facility] ID Date Data Source [id number] 11/27/2020 12:11:00 PM EST NextGen ([facility]) Name Value Range Interpretation Code Description Data Caitie rce(s) Supporting Document(s) 2 mm/Hr 0-20 ESR [facility] ID Date Data Source [id number] 11/27/2020 12:11:00 PM EST NextGen ([facility]) Name Value Range Interpretation Code Description Data Caitie rce(s) Supporting Document(s) 5.40 10*6/uL 4.00-5.90 RBC [facility] ([facility]) 16.8 g/dL 13.0-18.0 HGB [facility] 5.8 10*3/uL 3.7-10.1 WBC Next[facility] ([facility]) 31.0 pg 26.0-34.0 MCH [facility] 49.2 % 39.0-55.0 HCT [facility] ([facility]) 91.3 fL 70.0-100.0 MCV [facility]Gen ([facility]) 34.0 g/dL 31.0-37.0 MCHC [facility] ([facility]) 12.0 % 10.0-15.0 RDW [facility] ([facility]) 7.6 fL 6.0-10.0 MPV [facility] ([facility]) 163 10*3/uL 150-500 [place] NextGen ([facility]) 3.13 10*3/uL 2.10-8.00 BRAVO# [facility] ([facility]) 0.51 10*3/uL 0.10-1.00 MONO# [facility] ([facility]) 1.97 10*3/uL 1.00-5.00 LYM# [facility] ([facility]) 0.1 10*3/uL 0.0-0.5 EOS# NextGen ([facility]) 0.1 10*3/uL 0.0-0.2 BASO# NextGen ([facility]) 54.3 % 50.0-80.0 BRAVO% [facility] ([facility]) 34.1 % 25.0-50.0 LYM% [facility] ([facility]) 8.8 % 2.0-10.0 MONO% [facility] ([facility]) 1.6 % 0.0-5.0 EOS% [facility] ([facility]) 1.1 % 0.0-4.0 BASO% [facility] ([facility]) Procedure Social History Code Duration Value Status Description Data Source(s ) Smoking 07/27/2021 12:00:00 AM EDT Never Smoker completed Never S moker eCW1 ([facility]) Smoking 07/14/2021 12:00:00 AM EDT Never Smoker completed Never S moker eCW1 ([facility]) Smoking 06/17/2021 12:00:00 AM EDT Never Smoker completed Never S moker eCW1 ([facility]) Smoking 06/03/2021 12:00:00 AM EDT Never Smoker completed Never S moker eCW1 ([facility]) Smoking 05/31/2021 12:00:00 AM EDT Patient has never smoked co mpleted Patient has never smoked MEDENT ([facility]) Smoking 04/29/2021 12:00:00 AM EDT Never Smoker completed Never S moker eCW1 ([facility]) Caffeine Use Details 03/30/2021 12:00:00 AM EDT completed NextGen ([facility]) Smoking 03/30/2021 12:00:00 AM EDT Unknown if ever smoked comp leted Unknown if ever smoked [facility] ([facility]) 02/26/2021 12:00:00 AM EDT Current non-smoker completed C urrent non-smoker NextGen ([facility]) Smoking 02/25/2021 12:00:00 AM EDT Never Smoker completed Never S moker eCW1 ([facility]) Smoking 02/25/2021 12:00:00 AM EDT Never Smoker completed Never S moker eCW1 ([facility]) Smoking 02/25/2021 12:00:00 AM EDT Never Smoker completed Never S moker eCW1 ([facility]) Vital Signs ID Date Data Source UNK Name Value Range Interpretation Code Description Data Source(s) Body weight 183.4 [lb_av] 183.4 [lb_av] eCW1 ([facility]) Body weight 83.19 kg 83.19 kg W1 ([facility]) Body height 72 [in_i] 72 [in_i] eCW1 ([facility]) Body mass index (BMI) [Ratio] 24.87 kg/m2 24.87 kg/m2 eCW1 ([facility]) Systolic blood pressure 128 mm[Hg] 128 mm[Hg] e CW1 ([facility]) Diastolic blood pressure 76 mm[Hg] 76 mm[Hg] eCW1 ([facility]) Body weight 180 [lb_av] 180 [lb_av] eCW1 ([facility]) Body height 70 [in_i] 70 [in_i] eCW1 ([facility]) Body mass index (BMI) [Ratio] 25.82 kg/m2 25.82 kg/m2 eCW1 ([facility]) Heart rate 98 /min 98 /min eCW1 ([facility]) Respiratory rate 18 /min 18 /min eCW1 ([facility]) Body temperature 97.0 [degF] 97.0 [degF] eCW1 ( [facility]) Systolic blood pressure 136 mm[Hg] 136 mm[Hg] e CW1 ([facility]) Diastolic blood pressure 86 mm[Hg] 86 mm[Hg] eCW1 ([facility]) Systolic blood pressure 124 mm[Hg] 124 mm[Hg] M EDENT ([facility]) Diastolic blood pressure 88 mm[Hg] 88 mm[Hg] [facility] ([facility]) Body height 72 [in_i] 72 [in_i] [facility] ([facility]) 6'0" Body weight 182.00 [lb_av] 182.00 [lb_av] MEDEN T ([facility]) Body mass index (BMI) [Ratio] 24.7 kg/m2 24.7 k g/m2 [facility] ([facility]) [place] body weight 178 [lb_av] 178 [lb_av] [facility] Body weight 82.555 kg 82.555 kg [facility] ([facility]) Body surface area Derived from formula 2.05 m2 2.05 m2 [facility] ([facility]) Body weight 179.4 [lb_av] 179.4 [lb_av] W1 ([facility]) Body weight 81.38 kg 81.38 kg W1 ([facility]) Body height 70 [in_i] 70 [in_i] W1 ([facility]) Body mass index (BMI) [Ratio] 25.74 kg/m2 25.74 kg/m2 W1 ([facility]) Systolic blood pressure 124 mm[Hg] 124 mm[Hg] e CW1 ([facility]) Diastolic blood pressure 72 mm[Hg] 72 mm[Hg] eCW1 ([facility]) Body weight 170 [lb_av] 170 [lb_av] eCW1 ([facility]) Body weight 77.11 kg 77.11 kg eCW1 ([facility]) Body height [in_i] eCW1 ([facility]) Body mass index (BMI) [Ratio] 23.05 kg/m2 23.05 kg/m2 eCW1 ([facility]) Heart rate 83 /min 83 /min eCW1 ([facility]) Respiratory rate 18 /min 18 /min eCW1 ([facility]) Body temperature 96.7 [degF] 96.7 [degF] eCW1 ( [facility]) Systolic blood pressure 124 mm[Hg] 124 mm[Hg] e CW1 ([facility]) Diastolic blood pressure 74 mm[Hg] 74 mm[Hg] eCW1 ([facility]) Systolic blood pressure 124 mm[Hg] 124 mm[Hg] M EDENT ([facility], [facility]) Diastolic blood pressure 84 mm[Hg] 84 mm[Hg] MEDENT ([facility], [facility]) Heart rate 90 /min 90 /min MEDENT ([facility], [facility]) Respiratory rate 12 /min 12 /min MEDENT ( [facility] [place], [facility]) Oxygen saturation in Arterial blood by Pulse oximetry 98 % 98 % MEDENT ([facility] [place], [facility]) Body temperature 98.7 [degF] 98.7 [degF] MEDENT ([facility] [place], [facility]) Body weight 170.00 [lb_av] 170.00 [lb_av] MEDEN T ([facility] [place], [facility]) Body height 72 [in_i] 72 [in_i] MEDENT ([facility], [facility]) 6'0" Body mass index (BMI) [Ratio] 23.1 kg/m2 23.1 k g/m2 MEDENT ([facility], [facility]) Heart rate 64 /min 64 /min MEDENT ([facility]) Systolic blood pressure 110 mm[Hg] 110 mm[Hg] M EDENT ([facility]) Diastolic blood pressure 68 mm[Hg] 68 mm[Hg] MEDENT ([facility]) Body height 72 [in_i] 72 [in_i] MEDENT ([facility]) 6'0" Body weight 174.00 [lb_av] 174.00 [lb_av] MEDEN T ([facility]) Body mass index (BMI) [Ratio] 23.6 kg/m2 23.6 k g/m2 MEDENT ([facility]) Body weight 175 [lb_av] 175 [lb_av] eCW1 ([facility]) Body height [in_i] eCW1 ([facility]) Body mass index (BMI) [Ratio] 23.73 kg/m2 23.73 kg/m2 eCW1 ([facility]) Systolic blood pressure 122 mm[Hg] 122 mm[Hg] e CW1 ([facility]) Diastolic blood pressure 76 mm[Hg] 76 mm[Hg] eCW1 ([facility]) Body height 182.88 cm 182.88 cm NextGen ([facility]) Body weight 77.111 kg 77.111 kg NextGen ([facility]) Systolic blood pressure 122 mm[Hg] 122 mm[Hg] N extGen ([facility]) Diastolic blood pressure 62 mm[Hg] 62 mm[Hg] NextGen ([facility]) Body mass index (BMI) [Ratio] 23.06 kg/m2 23.06 kg/m2 NextGen ([facility]) Systolic blood pressure 134 mm[Hg] 134 mm[Hg] M EDENT ([facility], [facility]) Diastolic blood pressure 92 mm[Hg] 92 mm[Hg] MEDENT ([facility], [facility]) Heart rate 94 /min 94 /min MEDENT ([facility], [facility]) Respiratory rate 16 /min 16 /min MEDENT ( [facility], [facility]) Oxygen saturation in Arterial blood by Pulse oximetry 99 % 99 % MEDENT ([facility] [place], [facility]) Body temperature 96.9 [degF] 96.9 [degF] MEDENT ([facility], [facility]) Body weight 180.00 [lb_av] 180.00 [lb_av] MEDEN T ([facility] [place], [facility]) Body height 72 [in_i] 72 [in_i] [facility] ([facility]) 6'0" Body mass index (BMI) [Ratio] 24.4 kg/m2 24.4 k g/m2 [facility] ([facility], [facility]) Systolic blood pressure 128 mm[Hg] 128 mm[Hg] M EDENT ([facility]) Heart rate 78 /min 78 /min [facility] Body weight 183.00 [lb_av] 183.00 [lb_av] MEDEN T ([facility]) Diastolic blood pressure 80 mm[Hg] 80 mm[Hg] [facility]) Body height 72 [in_i] 72 [in_i] [facility] ([facility]) 6'0" Body mass index (BMI) [Ratio] 24.8 kg/m2 24.8 k g/m2 [facility] ([facility]) Body height 182.88 cm 182.88 cm [facility] Body weight 78.925 kg 78.925 kg [facility] ([facility]) Systolic blood pressure 124 mm[Hg] 124 mm[Hg] N extGen ([facility]) Diastolic blood pressure 80 mm[Hg] 80 mm[Hg] NextGen ([facility]) Body mass index (BMI) [Ratio] 23.60 kg/m2 23.60 kg/m2 NextGen ([facility]) Body height 72 [in_i] 72 [in_i] [facility] ([facility] [place], [facility]) 6'0" Systolic blood pressure 109 mm[Hg] 109 mm[Hg] [facility] [place], [facility]) Diastolic blood pressure 75 mm[Hg] 75 mm[Hg] [facility] ([facility], [facility]) Heart rate 89 /min 89 /min [facility] ([facility] [place], [facility]) Respiratory rate 16 /min 16 /min [facility] ( [facility], [facility]) Oxygen saturation in Arterial blood by Pulse oximetry 98 % 98 % [facility]) Body temperature 97.9 [degF] 97.9 [degF] MEDENT ([facility]) Body weight 180.00 [lb_av] 180.00 [lb_av] MEDEN T ([facility]) Body mass index (BMI) [Ratio] 24.4 kg/m2 24.4 k g/m2 MEDENT ([facility]) Patient Treatment Plan of Care Planned Activity Planned Date Details Description Data Source (s) Sulfamethoxazole 800 MG / Trimethoprim 160 MG Oral Tab let [Bactrim] 07/14/2021 12:00:00 AM EDT eCW1 ([facility]) Sulfamethoxazole 800 MG / Trimethoprim 160 MG Oral Tab let 06/03/2021 12:00:00 AM EDT eCW1 ([facility]) 1 ML secukinumab 150 MG/ML Auto-Injector [Cosentyx] 02/27/20 12:00:00 AM EDT [facility] ([facility] 1 ML secukinumab 150 MG/ML Auto-Injector [Cosentyx] 02/27/20 12:00:00 AM EDT [facility] ([facility]) imiquimod 50 MG/ML Topical Cream 02/25/2021 12:00:00 AM EDT eCW1 ([facility]) Triamcinolone Acetonide 1 MG/ML Topical Cream 02/25/2021 12:00:00 A M EDT eCW1 ([facility]) imiquimod 50 MG/ML Topical Cream 02/25/2021 12:00:00 AM EDT eCW1 ([facility]) Triamcinolone Acetonide 1 MG/ML Topical Cream 02/25/2021 12:00:00 A M EDT eCW1 ([facility]) imiquimod 50 MG/ML Topical Cream 02/25/2021 12:00:00 AM EDT eCW1 ([facility]) imiquimod 50 MG/ML Topical Cream 02/25/2021 12:00:00 AM EDT eCW1 ([facility]) Triamcinolone Acetonide 1 MG/ML Topical Cream 02/25/2021 12:00:00 A M EDT eCW1 ([facility]) HUMIRA PEN (2/BOX) 40MG/0.4ML 02/01/2021 12:00:00 AM EDT NextGen ([facility]) Prednisone 5 MG Oral Tablet 11/27/2020 12:00:00 AM EST NextGen ([facility]) Humira(CF) Pen 40 mg/0.4 mL subcutaneous kit 11/27/2020 12:00:00 AM EST NextGen ([facility]) Humira(CF) Pen 40 mg/0.4 mL subcutaneous kit 11/27/2020 12:00:00 AM EST NextGen ([facility]) HUMIRA PEN (2/BOX) 40MG/0.4ML 08/31/2020 12:00:00 AM EST NextGen ([facility])
[2021-08-19] MEDS ORDERED: propofoL 200 MG/20 ML VIAL As Ordered ONE (13:51)
--- NOTE | 2021-08-19 14:03 | ROOR ---
Patient Name: John Jimenez Procedure Date: 08/19/2021 1:47 PM Date of : 1995 Age: 25 Room: [facility] Gender: Male Note Status: Finalized Procedure: Upper GI endoscopy Indications: Epigastric abdominal pain, Nausea with vomiting Providers: Richard Lubin MD Referring MD: ANN HUDDLESTON JR, MD Requesting Provider: Medicines: Monitored Anesthesia Care Complications: No immediate complications. Procedure: Pre-Anesthesia Assessment: - Prior to the procedure, a History and Physical was performed, and patient medications and allergies were reviewed. The patient is competent. The risks and benefits of the procedure and the sedation options and risks were discussed with the patient. All questions were answered and informed consent was obtained. Patient identification and proposed procedure were verified by the physician, the nurse and the anesthesiologist in the procedure room. Mental Status Examination: alert and oriented. Airway Examination: normal oropharyngeal airway and neck mobility. Respiratory Examination: clear to auscultation. CV Examination: normal. Prophylactic Antibiotics: The patient does not require prophylactic antibiotics. Prior Anticoagulants: The patient has taken no previous anticoagulant or antiplatelet agents. ASA Grade Assessment: II - A patient with mild systemic disease. After reviewing the risks and benefits, the patient was deemed in satisfactory condition to undergo the procedure. The anesthesia plan was to use monitored anesthesia care (MAC). Immediately prior to administration of medications, the patient was re-assessed for adequacy to receive sedatives. The heart rate, respiratory rate, oxygen saturations, blood pressure, adequacy of pulmonary ventilation, and response to care were monitored throughout the procedure. The physical status of the patient was re-assessed after the procedure. The Endoscope was introduced through the mouth, and advanced to the second part of duodenum. The upper GI endoscopy was accomplished without difficulty. The patient tolerated the procedure well. Findings: The Z-line was regular and was found 40 cm from the incisors. The examined esophagus was normal. Scattered minimal inflammation characterized by erythema and granularity was found in the gastric antrum. Biopsies were taken with a cold forceps for Helicobacter pylori testing. Verification of patient identification for the specimen was done by the physician and nurse using the patient's name, date and medical record number. Estimated blood loss was minimal. The duodenal bulb and second portion of the duodenum were normal. Biopsies for histology were taken with a cold forceps for evaluation of celiac disease. Impression: - Z-line regular, 40 cm from the incisors. - Normal esophagus. - Gastritis. Biopsied. - Normal duodenal bulb and second portion of the duodenum. Biopsied. Recommendation: - Patient has a contact number available for emergencies. The signs and symptoms of potential delayed complications were discussed with the patient. Return to normal activities tomorrow. Written discharge instructions were provided to the patient. - High fiber diet. - Continue present medications. - Await pathology results. - Follow an antireflux regimen. - Telephone GI clinic for pathology results in 2 weeks. - Return to GI clinic if persistent symptoms or new symptoms. - Return to primary care physician. Procedure Code(s): --- Professional --- 89514, Esophagogastroduodenoscopy, flexible, transoral; with biopsy, single or multiple Diagnosis Code(s): --- Professional --- K29.70, Gastritis, unspecified, without bleeding R10.13, Epigastric pain R11.2, Nausea with vomiting, unspecified CPT copyright 2019 [employer]. All rights reserved. The codes documented in this report are preliminary and upon health informatics specialist review may be revised to meet current compliance requirements. Richard Lubin MD Richard Lubin MD 08/19/2021 2:02:46 PM Electronically signed by Richard Lubin MD Number of Addenda: 0 Note Initiated On: 08/19/2021 1:47 PM Estimated Blood Loss: Estimated blood loss was minimal.
[2021-08-19 14:35] VITALS: BP 135/72
== END 2021-08-19 14:50 | disposition home or self-care (01) ==
LOC: M OPP 12:20
PROVIDERS: ATTEND Internal Medicine Gastroenterology
DX: K29.70 Gastritis, unspecified, without bleeding (principal); R10.13 Epigastric pain; R11.2 Nausea with vomiting, unspecified; Z79.899 Other long term (current) drug therapy
CPT/HCPCS: 43239; 88305; J3010

== ENCOUNTER → 2021-11-23 | Outpatient (CLI) | payer OTHER, BC ==
[~2021-11-23] MED LIST changes: -LIDOCAINE 2% 100MG/5ML SDV (FOR ANES.) As Ordered ONE; -NS 1,000 ML IV ONE; -fentaNYL 100 MCG/2 ML INJECTION (J3010) As Ordered ONE; -propofoL 200 MG/20 ML VIAL As Ordered ONE
== END ==
LOC: M WUC 10:52
PROVIDERS: ATTEND Nurse Practitioner
DX: Z51.81 Encounter for therapeutic drug level monitoring (principal); L40.59 Other psoriatic arthropathy; Z79.899 Other long term (current) drug therapy

== ENCOUNTER → 2022-06-06 | Outpatient (REF) | payer BC, OTHER ==
[2022-06-06 14:54] LABS: APPEARANCE, URINE MANUAL CLEAR (CLEAR); BILIRUBIN, URINE MANUAL NEGATIVE (NEGATIVE); BLOOD URINE MANUAL NEGATIVE (NEGATIVE); COLOR, URINE MANUAL YELLOW (YELLOW); GLUCOSE, URINE (UA) MANUAL NEGATIVE (NEGATIVE); KETONE, URINE MANUAL NEGATIVE (NEGATIVE); LEUKOCYTE ESTERASE, URINE MAN NEGATIVE (NEGATIVE); NITRITE, URINE MANUAL NEGATIVE (NEGATIVE); PH,URINE MAN 5.5 UNITS (5.0 - 7.0); PROTEIN, URINE MANUAL TRACE mg/dL (NEGATIVE); UROBILINOGEN, URINE MANUAL NORMAL (NORMAL)
[2022-06-06 15:16] LABS: BACTERIA, URINE NONE SEEN; MUCUS, URINE LARGE AMOUNT (NEGATIVE); RBC, URINE 0-1 /hpf (0-3); SQUAMOUS EPITHELIAL CELL URINE SMALL AMOUNT /hpf (SMALL AMT); TRANSITIONAL EPI CELLS, URINE SMALL AMOUNT /hpf
[2022-06-06 15:17] LABS: HYALINE CAST, URINE NONE SEEN /lpf (0-1)
== END ==
LOC: M SMT 12:26
PROVIDERS: ATTEND Physician Assistant
DX: N41.1 Chronic prostatitis (principal)

== ENCOUNTER 2022-10-16 02:29 | Emergency (ER) | payer BC, OTHER ==
[~2022-10-16] VITALS: Ht 182.9 cm; Wt 77.3 kg
[2022-10-16 02:56] VITALS: BP 144/86
[2022-10-16 03:27] LABS: HEMATOCRIT 44.6 % (42.0-52.0); HEMOGLOBIN 15.7 g/dl (13.5-17.5); MEAN CORPUSCULAR HEMOGLOBIN 30.4 pg (27.0-33.0); MEAN CORPUSCULAR HGB CONC 35.2 g/dl (32.0-36.5); MEAN CORPUSCULAR VOLUME 86.3 fl (80.0-96.0); PLATELET COUNT, AUTOMATED 170 10^3/uL (150-450); RED BLOOD COUNT 5.17 10^6/uL (4.30-6.10); WHITE BLOOD COUNT 11.8 10^3/uL (4.0-10.0)
[2022-10-16 03:54] LABS: AMPHETAMINES LEVEL URINE NEGATIVE (NEGATIVE); BARBITURATES URINE NEGATIVE (NEGATIVE); BENZODIAZEPINES URINE NEGATIVE (NEGATIVE); COCAINE METABOLITE URINE NEGATIVE (NEGATIVE); METHADONE URINE NEGATIVE (NEGATIVE); OPIATES URINE NEGATIVE (NEGATIVE); PHENCYCLIDINE URINE NEGATIVE (NEGATIVE)
[2022-10-16 03:56] LABS: ETHYL ALCOHOL (ETHANOL) 0.274 % (0.000-0.010)
[2022-10-16 03:57] LABS: ACETAMINOPHEN LEVEL < 2.0 UG/ML (10.0-20.0); BILIRUBIN,DIRECT 0.2 MG/DL (<0.4)
[2022-10-16 03:57] LABS: CANNABINOIDS URINE POSITIVE (NEGATIVE)
[2022-10-16 03:58] LABS: ALBUMIN 5.2 G/DL (3.2-5.2); ALKALINE PHOSPHATASE 91 U/L (46-116); ALT/SGPT 22 U/L (7.0-40); AST/SGOT 29 U/L (<34); BILIRUBIN,TOTAL 0.6 MG/DL (0.3-1.2); BLOOD UREA NITROGEN 10 MG/DL (9-23); CALCIUM LEVEL 9.4 MG/DL (8.5-10.1); CARBON DIOXIDE LEVEL 24 MMOL/L (20-31); CHLORIDE LEVEL 104 MMOL/L (98-107); CREATININE FOR GFR 0.78 MG/DL (0.70-1.30); GLOMERULAR FILTRATION RATE > 60.0 (>60); GLUCOSE, FASTING 103 MG/DL (60-100); POTASSIUM SERUM 3.9 MMOL/L (3.5-5.1); SALICYLATE LEVEL < 3.0 MG/DL (<30); SODIUM LEVEL 143 MMOL/L (136-145); TOTAL PROTEIN 8.1 G/DL (5.7-8.2)
[2022-10-16 04:00] LABS: THYROID STIMULATING HORMONE 1.679 uIU/ML (0.55-4.78)
[2022-10-16 04:03] LABS: RSV AMPLIFICATION NEGATIVE (NEGATIVE)
== END 2022-10-16 11:43 | disposition home or self-care (01) ==
LOC: M ED 02:29
DX: F43.0 Acute stress reaction (principal); F10.129 Alcohol abuse with intoxication, unspecified; E75.249 Niemann-Pick disease, unspecified; F12.10 Cannabis abuse, uncomplicated; Z79.899 Other long term (current) drug therapy

== ENCOUNTER → 2022-10-25 | Outpatient (REF) | payer BC, OTHER ==
[2022-10-25 15:29] LABS: APPEARANCE, URINE MANUAL CLEAR (CLEAR); COLOR, URINE MANUAL COLORLESS (YELLOW)
[2022-10-25 15:30] LABS: BILIRUBIN, URINE MANUAL NEGATIVE (NEGATIVE); BLOOD URINE MANUAL NEGATIVE (NEGATIVE); GLUCOSE, URINE (UA) MANUAL NEGATIVE (NEGATIVE); KETONE, URINE MANUAL NEGATIVE (NEGATIVE); NITRITE, URINE MANUAL NEGATIVE (NEGATIVE); PH,URINE MAN 5.5 UNITS (5.0 - 7.0); PROTEIN, URINE MANUAL NEGATIVE (NEGATIVE); UROBILINOGEN, URINE MANUAL NORMAL (NORMAL)
[2022-10-25 15:31] LABS: LEUKOCYTE ESTERASE, URINE MAN NEGATIVE (NEGATIVE)
== END ==
LOC: M SMT 13:12
PROVIDERS: ATTEND Physician Assistant
DX: N41.1 Chronic prostatitis (principal)

== ENCOUNTER 2023-05-20 04:31 | Emergency (ER) | payer BC, OTHER ==
[~2023-05-20] VITALS: Ht 182.9 cm; Wt 100.0 kg
[2023-05-20 04:39] VITALS: O2SAT 100
[2023-05-20] MEDS ORDERED: NS 1,000 ML IV ONE (04:45)
[2023-05-20 05:06] LABS: BASO % 0.2 % (0.0-1.0); EOS % 0.2 % (0.0-3.0); HEMATOCRIT 44.8 % (42.0-52.0); HEMOGLOBIN 15.6 g/dl (13.5-17.5); LYMPH # 2.4 10^3/uL (1.5-5.0); LYMPH % 26.3 % (24.0-44.0); MEAN CORPUSCULAR HEMOGLOBIN 30.5 pg (27.0-33.0); MEAN CORPUSCULAR HGB CONC 34.8 g/dl (32.0-36.5); MEAN CORPUSCULAR VOLUME 87.7 fl (80.0-96.0); MONO # 0.5 10^3/uL (0.0-0.8); MONO % 5.9 % (2.0-8.0); NEUTROPHILS # 6.1 10^3/uL (1.5-8.5); NEUTROPHILS % 67.1 % (36.0-66.0); PLATELET COUNT, AUTOMATED 175 10^3/uL (150-450); RED BLOOD COUNT 5.11 10^6/uL (4.30-6.10); WHITE BLOOD COUNT 9.2 10^3/uL (4.0-10.0)
[2023-05-20 05:28] LABS: SALICYLATE LEVEL < 3.0 MG/DL (<30)
[2023-05-20 05:29] LABS: ACETAMINOPHEN LEVEL < 2.0 UG/ML (10.0-20.0); ALKALINE PHOSPHATASE 80 U/L (46-116); ALT/SGPT 20 U/L (7.0-40); AST/SGOT 20 U/L (<34); BILIRUBIN,DIRECT 0.2 MG/DL (<0.4); BILIRUBIN,TOTAL 0.5 MG/DL (0.3-1.2); BLOOD UREA NITROGEN 13 MG/DL (9-23); CALCIUM LEVEL 8.1 MG/DL (8.5-10.1); CARBON DIOXIDE LEVEL 27 MMOL/L (20-31); CHLORIDE LEVEL 99 MMOL/L (98-107); CPK CREATINE PHOSPHOKINASE 110 U/L (46-171); CREATININE FOR GFR 0.83 MG/DL (0.70-1.30); GLOMERULAR FILTRATION RATE > 60.0 (>60); GLUCOSE, FASTING 110 MG/DL (60-100); POTASSIUM SERUM 3.9 MMOL/L (3.5-5.1); SODIUM LEVEL 137 MMOL/L (136-145); TOTAL PROTEIN 7.8 G/DL (5.7-8.2)
[2023-05-20 05:31] LABS: THYROID STIMULATING HORMONE 1.502 uIU/ML (0.55-4.78)
[2023-05-20 05:49] LABS: AMPHETAMINES LEVEL URINE NEGATIVE (NEGATIVE); BARBITURATES URINE NEGATIVE (NEGATIVE); BENZODIAZEPINES URINE NEGATIVE (NEGATIVE); CANNABINOIDS URINE NEGATIVE (NEGATIVE); COCAINE METABOLITE URINE NEGATIVE (NEGATIVE); METHADONE URINE NEGATIVE (NEGATIVE); OPIATES URINE NEGATIVE (NEGATIVE); PHENCYCLIDINE URINE NEGATIVE (NEGATIVE)
[2023-05-20 05:50] LABS: ETHYL ALCOHOL (ETHANOL) 0.354 % (0.000-0.010)
[2023-05-20 06:35] VITALS: TEMP 97.8
[2023-05-20 11:00] VITALS: BP 118/65
[2023-05-20 11:01] VITALS: O2SAT 97
== END 2023-05-20 11:16 | disposition home or self-care (01) ==
LOC: M ED 04:31 → EDBD 04:31 → M ED 11:16
DX: F10.129 Alcohol abuse with intoxication, unspecified (principal); Z79.899 Other long term (current) drug therapy